=== PATIENT | female | born 1940 | race Caucasian/White ===

== ENCOUNTER 2024-03-12 13:52 | Emergency (ER) | payer MEDICARE, MEDICAID, SELFPAY ==
[2024-03-12] VITALS (12 sets, daily range): BP systolic 115–146; BP diastolic 84–85; PULSE 61–73; RESP 11–22; TEMP 36.6; O2SAT 95–99
[2024-03-12 14:19] LABS: Basophils Percent Auto 0.5 % (0.2-1.2); Eosinophils Absolute Auto 0.2 K/mm3 (0-0.3); Eosinophils Percent Auto 2.2 % (0-4.4); Hematocrit 38.1 % (37.0-47.0); Hemoglobin 12.5 g/dL (12.0-15.0); Immature Granulocyte Absolute 0.02 K/mm3 (0.00-0.031); Immature Granulocyte Percent A 0.2 % (0-0.5); Lymphocytes Absolute Auto 3.03 K/mm3 (0.9-3.2); Lymphocytes Percent Auto 36.7 % (18.3-44.2); Mean Corpuscular HGB Conc 32.8 g/dl (32-36); Mean Corpuscular Volume 94.5 fl (80-100); Mean Platelet Volume 10.9 fl (7.4-10.4); Monocytes Absolute Auto 0.7 K/mm3 (0.1-0.6); Monocytes Percent Auto 8.6 % (2.6-8.5); Neutrophils Absolute Auto 4.3 K/mm3 (1.3-6.7); Neutrophils Percent Auto 51.8 % (45.5-73.1); Platelet Count Result 197 k/mm3 (150-375); Red Blood Count 4.03 M/mm3 (4.2-5.4); Red Cell Distribution Width 13.1 % (11.5-14.5); White Blood Count 8.3 K/mm3 (4.5-10.0)
[2024-03-12 14:29] LABS: Alanine Aminotransferase 14 U/L (6-35); Alkaline Phosphatase 108 U/L (38-126); Anion Gap 8 mmol/L (4-12); Aspartate Amino Transferase 23 U/L (14-36); Bilirubin,Total 0.6 mg/dL (0.2-1.3); Blood Urea Nitrogen 20 mg/dL (7-17); Carbon Dioxide 25 mmol/L (22-30); Chloride 103 mmol/L (98-107); Estimated CRCL calculation 72 ml/min; Estimated Glomerular Filt Rate > 60; Glucose 96 mg/dL (65-110); Sodium 136 mmol/L (137-145)
[2024-03-12 14:30] LABS: Lactic Acid Reflex 0.9 mmol/L (0.7-2.0)
[2024-03-12 15:30] LABS: Add Urine Microscopic? NO; Appearance Urine Clear (Clear); Bacteria Urine None Seen /hpf; Bilirubin Urine Negative (Negative); Blood Urine Non-Hemolyzed Trace (Negative); Color Urine Yellow (Yellow); Glucose Urine UA Negative (Negative); Ketones Urine Negative (Negative); Leukocyte Esterase Ur Negative LEU/UL (Negative); Need Manual Microscopic Reviewed; Nitrate Urine Negative (Negative); Non Pathogenic Casts 0-2; Protein Urine Negative (Negative); RBC Urine 0-2 /hpf (0-2); Specific Grav Ur 1.017 (1.001-1.035); Squamous Epithelial Cell Urine None Seen /hpf (Few); Urobilinogen Urine 0.2 mg/dL (<2.0); WBC Urine 0-5 /hpf (0-3); pH Urine 5.5 (5.0-9.0)
[2024-03-12 15:49] LABS: Ethanol < 10 mg/dL (<10)
--- NOTE | 2024-03-12 15:58 | ED_ITS ---
HPI - Altered Mental Status General Chief Complaint: Altered Mental Status Stated Complaint: PSYCH Time Seen by Provider: 03/12/24 13:59 Source: EMS Mode of arrival: EMS Limitations: altered mental status History of Present Illness HPI narrative: 83-year-old with a history of schizoaffective disorder, GERD was sent in [facility] for [facility] behavior. Upon arrival patient is screaming however denied any chest pain or headache. No history of fever or falls report Review of Systems Review of Systems: ROS unobtainable: Yes unobtainable due to mental status and other (Dementia) Exam Narrative: GENERAL: Well-appearing, well-nourished, loud HEAD: Normocephalic, atraumatic. EYES: PERRLA and EOMI. ENT: Nares clear NECK: Supple. CHEST: Clear to auscultation. No respiratory distress. HEART: Regular rate and rhythm. No murmur heard. Normal peripheral pulses. ABDOMEN: Soft, nontender, nondistended, normal active bowel sounds. EXTREMITIES: Normal range of motion. No edema. SKIN: Warm, dry, no rash. NEURO: No focal deficits. Alert PSYCH: Normal mood and affect. Course Course Emergency Course: Patient calmed down. Her lab work is unremarkable will discharge her back to the nursing Vital Signs Vital signs: Vital Signs Temperature 36.6 C 03/12/24 14:01 Pulse Rate 73 03/12/24 14:01 Respiratory Rate 18 03/12/24 14:01 Blood Pressure 115/85 03/12/24 14:01 Pulse Oximetry 97 03/12/24 14:01 Oxygen Delivery Room Air 03/12/24 14:01 Temperature 36.6 C 03/12/24 14:01 Pulse Rate 61 03/12/24 14:29 Respiratory Rate 18 03/12/24 14:01 Blood Pressure 115/85 03/12/24 14:01 Pulse Oximetry 99 03/12/24 14:29 Oxygen Delivery Room Air 03/12/24 14:29 MDM - Altered Mental Status Lab Data 03/12/24 14:07 03/12/24 14:07 Labs: Lab Results 03/12/24 03/12/24 Range/Units 14:07 14:10 WBC 8.3 (4.5-10.0) K/mm3 RBC 4.03 L (4.2-5.4) M/mm3 Hgb 12.5 (12.0-15.0) g/dL Hct 38.1 (37.0-47.0) % MCV 94.5 (80-100) fl MCH 31.0 (26-34) pg MCHC 32.8 (32-36) g/dl RDW 13.1 (11.5-14.5) % Plt Count 197 (150-375) k/mm3 MPV 10.9 H (7.4-10.4) fl Immature Gran % (Auto) 0.2 (0-0.5) % Neut % (Auto) 51.8 (45.5-73.1) % Lymph % (Auto) 36.7 (18.3-44.2) % [place] % (Auto) 8.6 H (2.6-8.5) % Eos % (Auto) 2.2 (0-4.4) % Baso % (Auto) 0.5 (0.2-1.2) % Lymph # (Auto) 3.03 (0.9-3.2) K/mm3 [place] # (Auto) 0.7 H (0.1-0.6) K/mm3 Eos # (Auto) 0.2 (0-0.3) K/mm3 Baso # (Auto) 0.0 (0.0-0.1) K/mm3 Abs Immat Gran (auto) 0.02 (0.00-0.031) K/mm3 Absolute Neuts (auto) 4.3 (1.3-6.7) K/mm3 Absolute Nucleated RBC 0.000 (0.0-0.012) K/mm3 Nucleated RBC % 0.0 (0.0-0.2) % Sodium 136 L (137-145) mmol/L Potassium 4.0 (3.4-5.0) mmol/L Chloride 103 (98-107) mmol/L Carbon Dioxide 25 (22-30) mmol/L Anion Gap 8 (4-12) mmol/L BUN 20 H (7-17) mg/dL Creatinine 0.50 L (0.7-1.0) mg/dL Estim Creat Clear Calc 72 ml/min Estimated GFR > 60 (59 - ) Glucose 96 (65-110) mg/dL Lactic Acid 0.9 (0.7-2.0) mmol/L Calcium 9.0 (8.4-10.2) mg/dL Total Bilirubin 0.6 (0.2-1.3) mg/dL AST 23 (14-36) U/L ALT 14 (6-35) U/L Alkaline Phosphatase 108 (38-126) U/L Total Protein 8.0 (6.3-8.2) g/dL Albumin 4.0 (3.5-5.1) g/dL TSH (Reflex) 1.720 (0.465-4.68) uIU/mL Urine Color Yellow (Yellow) Urine Appearance Clear (Clear) Urine pH 5.5 (5.0-9.0) Ur Specific [place] 1.017 (1.001-1.035) Urine Protein Negative (Negative) mg/dL Urine Glucose (UA) Negative (Negative) mg/dL Urine Ketones Negative (Negative) mg/dL Ur Blood (Man) Non-hemolyzed trace H (Negative) Urine Nitrate Negative (Negative) Urine Bilirubin Negative (Negative) Urine Urobilinogen 0.2 (<2.0) mg/dL Add Ur Microanalysis Reviewed Leukocyte Esterase Rfl Negative (Negative) TYRONE/UL Urine RBC 0-2 (0-2) /hpf Urine WBC 0-5 (0-3) /hpf Ur Squamous Epith Cells None seen (Few) /hpf Urine Bacteria None seen /hpf Urine Casts 0-2 Urine Opiates Screen Pending Urine Methadone Screen Pending Ur Barbiturates Screen Pending Ur Phencyclidine Scrn Pending Ur Amphetamine Screen Pending U Benzodiazepines Scrn Pending Urine Cocaine Screen Pending U Cannabinoids Screen Pending Ethyl Alcohol < 10 (<10) mg/dL Discharge Plan Discharge Clinical Impression: Altered mental status Qualifiers: Altered mental status type: disorientation Qualified Code(s): R41.0 - Disorientation, unspecified Patient Disposition: [facility]Asst Living Condition: Stable Instructions: Altered Mental Status (ED) Follow-up/Referrals: Delfin Starks MD [Primary Care Provider] - Time of Disposition: 16:00
[2024-03-12 16:06] LABS: Amphetamine Screen Urine Negative (Negative); Barbiturate Screen Urine Negative (Negative); Benzodiazepines Screen Urine Negative (Negative); Cannabinoid Screen Urine Negative (Negative); Cocaine Screen Urine Negative (Negative); Methadone Screen Urine Negative (Negative); Opiate Screen Urine Negative (Negative); Phencyclidine Screen Urine Negative (Negative)
== END 2024-03-12 17:28 ==
PROVIDERS: Emergency Provider Family Medicine; PCP Family Medicine
DX: R41.82 Altered mental status, unspecified (principal); R41.0 Disorientation, unspecified; F25.9 Schizoaffective disorder, unspecified; K21.9 Gastro-esophageal reflux disease without esophagitis
CPT/HCPCS: 36415; 80053; 80307; 81003; 82077; 83605; 84443; 85025; 87040; 99284

== ENCOUNTER 2024-07-06 09:35 | Outpatient (CLI) | payer MEDICARE, MEDICAID, SELFPAY ==
--- NOTE | ~2024-07-06 | CT_ITS ---
EXAMINATION: CT chest abdomen pelvis w con DATE: 07/06/2024 10:12 INDICATION: Malignant neoplasm of breast. TECHNIQUE: Computed tomography (CT) of the chest, abdomen, and pelvis was performed with 100 mL Omnip aque 350 intravenous contrast. Automated exposure control and iterative reconstruction technique were employed. The dose-length product was 483.19 mGy-cm. COMPARISON: None FINDINGS: CHEST CT: There is mild scarring at the lung apices. There is mild emphysema. There is mild atelectasis bilater ally. No pleural effusion. The heart size is normal. There are coronary artery calcifications. No per icardial effusion. There is a 2.1 cm subareolar mass in left breast. There is a mildly enlarged left axillary lymph node. There are widespread scattered lytic lesions in the bones. There is a pathologic compression fracture of T3. There is a pathologic burst fracture of T8, probably chronic. There is s evere thoracic spondylosis, probably chronic. ABDOMEN/PELVIS CT: The liver and spleen are normal. There are gallstones in the gallbladder, which is normal in size. Th e pancreas and adrenal glands are normal. There is cortical thinning of the kidneys. There is a 14 mm cyst in left kidney. There are no dilated loops of bowel. There are no pathologically enlarged lymph nodes. There is no free intraperitoneal fluid. There are subcutaneous calcifications in the right bu ttock, consistent with old fat necrosis. There are widespread scattered lytic lesions in the bones. T here is severe lumbar spondylosis. IMPRESSION: 1. Left breast mass, mildly enlarged left axillary lymph node, and widespread bone lesions, consisten t with metastatic breast cancer. Reviewed, dictated and finalized at location [facility]. [facility] IMPRESSION: 1. Left breast mass, mildly enlarged left axillary lymph node, and widespread b one lesions, consistent with metastatic breast cancer.
[2024-07-06 10:02] LABS: Estimated Glomerular Filt Rate > 60
--- OUTSIDE RECORDS SUMMARY | 2024-07-06 12:22 | XMS_ITS | Clinical Summary ---
Author Organization [facility] [address] [place] [address] Care Team Providers Care Railway Engineer Name Role Phone Glynn Jefferson MD Primary Care Provi castro Jamaal Amaya Unavailable [phone] Pa Mejía DO Unavailable [phone] Allergies Active Allergy Reactions Criticality Noted Date Comments Ciprofloxacin Unknown 08/06/2021 Diphenhydramine Unknown 08/06/2021 Penicillins Other (See comments) Low 01/30/2016 Reaction: Streptomycin Unknown 08/06/2021 Sulfa (Sulfonamide Antibiotics) Unknown 06/06/2015 Medications cholecalciferol, vitamin D3, 1,000 unit tablet,chewable Take 2 tablet/chew tab by mouth every morning Active cyanocobalamin (Vitamin B-12) 1,000 mcg tablet Take 1 tablet (1,000 mcg total) by mouth daily Active OLANZapine (ZyPREXA) 10 mg tablet Take 1 tablet (10 mg total) by mouth nightly 01/03/20 24 Active ondansetron ODT (ZOFRAN-ODT) 4 mg disintegrating tabletIndications: Nausea and Vomiting Take 1 tablet (4 mg total) by mouth every 6 (six) hours as needed for nausea or vomiting 01/03/20 24 Active ondansetron (ZOFRAN) 4 mg/2 mL injectionIndicatio ns:Nausea and Vomiting Infuse 2 mL (4 mg total) into a venous catheter every 6 (six) hours as needed for nausea or vomiting (if not tolerating PO) 01/03/20 24 Active polyethylene glycol (MIRALAX) 17 gram/dose bulk powderIndications: constipation Take 17 g by mouth 2 (two) times a day 01/03/20 24 Active senna (SENOKOT) 8.6 mg tablet Take 1 tablet by mouth 2 (two) times a day 01/03/20 24 025 Active bisacodyL (DULCOLAX) 10 mg suppositoryIndicat ions:constipation Insert 1 suppository (10 mg total) into the rectum daily Active magnesium citrate solution Take by mouth once Active silver sulfadiazine (SILVADENE, SSD) 1 % creamIndications:M inor Bacterial Skin Infections Apply topically daily 85 g 06/03/19 25 Active anastrozole (ARIMIDEX) 1 mg tabletIndications: Hormone Receptor + Postmenopausal Advanced Breast Cancer Take 1 tablet (1 mg total) by mouth daily 30 tablet 3 06/03/19 25 Active Active Problems Problem Noted Date Diagnosed Date Malignant neoplasm of left b reast in female, estrogen receptor positive 01/06/2024 Cancer Staging:Clinical stage from 01/24/2024:Stage IV(cT2, cN2a, cM1, G1, ER+, NY+, HER2-) - Signed by Pa Mejía DO on 02/28/2024 Altered mental status, unspe cified altered mental status type 12/27/2023 Encounters Date Type Department Care Team Description 07/06/2024 Orders Only [facility] [address] [place] [address] [phone] ProviderDavid MD 06/03/2024 1:15 PM REGULATORY LEAD Lab [facility] at [address] [address] Malignant neoplasm of left breast in female, estrogen receptor positive, unspecified site of breast (HCC) 06/03/2024 1:00 PM REGULATORY LEAD Office Visit 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 [address] [place] [address] Alexandra Navas, [facility] 05/06/[address] [facility] [address] [place] [address] Latha Arreola, [facility] 05/04/2024 Orders Only [facility] [address] [place] [address] Latha Arreola, [facility] Malignant neoplasm of left breast in female, estrogen receptor positive, unspecified site of breast (HCC) (Primary Dx) from Last 3 Months Immunizations Immunization Administration Dates Next Due Tdap 01/02/2023 Medical History Medical History Date Comments Schizophrenia (HCC) Bipolar affective (HCC) GERD (gastroesophageal reflux disease) Cancer (CMS/HCC) (HCC) Family History Medical History Relation Name Comments No Known Problems Father No Known Problems Maternal Grandfather Breast cancer Maternal Grandmother No Known Problems Mother No Known Problems Paternal Grandfather No Known Problems Paternal Grandmother Relation Name Status Comments Father Maternal Grandfather Maternal Grandmother Mother Paternal Grandfather Paternal Grandmother Social History Tobacco Use Types Packs/Day Years Used Date Smoking Tobacco: Every Day Cigarettes Tobacco Cessation:Ready to Q uit: Not Asked; Counseling Given: Not Answered Passive Exposure Comments:5 cigarettes a day AUDIT-C Answer Date Recorded Q1: How often do you have a drink containing alcohol? Never 02/28/2024 Q2: How many drinks containi ng alcohol do you have on a typical day when you are drinking? Patient does not drink Q3: How often do you have si x or more drinks on one occasion? Never 02/28/2024 Personal Safety Answer Date Recorded Have you ever been in or are you currently in a harmful physical or emotional relationship or is someone making you feel afraid or unsafe? Denies 12/28/2023 Comments Unknown Sex and Gender Information Value Date Recorded Sex Assigned at Not on file Legal Sex Female 4:40 AM REGULATORY LEAD Gender Identity Not on file Sexual Orientation Not on file Occupation Industry Job Start Date Job End Date retired Not on file Not on file Not on file Obstetrics History Last Filed Vital Signs Vital Sign Reading Time Taken Comments Blood Pressure 111/68 06/03/2024 1:29 PM REGULATORY LEAD Pulse 82 06/03/2024 1:29 PM REGULATORY LEAD Temperature 36.5 C (97.7 F) 06/03/2024 1:29 PM REGULATORY LEAD Respiratory Rate 18 06/03/2024 1:29 PM REGULATORY LEAD Oxygen Saturation 99% 06/03/2024 1:2 9 PM REGULATORY LEAD Inhaled Oxygen Concentration - - Weight 73.7 kg (162 lb 6.4 oz) 06/03/2024 1:29 PM REGULATORY LEAD Height 177.8 cm (5' 10 ) 01/24/2024 4:0 0 PM CDT Pt is unable stand up Body Mass Index 23.3 01/24/2024 4:00 PM CDT Plan of Treatment Health Maintenance Due Date Last Done Comments Depression Screening 1940 Osteoporosis Screening-Bone Density Scan 1940 Pneumococcal vaccine 65+ (1 of 2 - PCV) 1946 Hepatitis B Screening 1958 Zoster Vaccine (1 of 2) 11/28/1959 Well Visit 65+ 2005 Covid-19 Vaccine (3 - Pfizer risk series) 07/15/2020 06/17/2020, 05/27/2020 Influenza Vaccine (#1) 2024 Fall Risk Assessment 01/02/2025 01/03/2024 DTaP/Tdap/Td Vaccine (2 - Td or Tdap) 01/02/2033 Procedures Procedure Name Priority Date/Time Associated Diagnosis Comments POCT CREATININE FOR CONTRAST EVALUATION Routine 07/06/2024 11:[address] CHEST ABDOMEN PELVIS W CONTRAST Schedule Routine, Read Routine (OP Routine) 07/06/2024 10:41 AM REGULATORY LEAD EGFR Routine 06/03/2024 1:19 PM REGULATORY LEAD Malignant neoplasm of left breast in female, estrogen receptor positive, unspecified site of breast (HCC) DIFFERENTIAL AUTO Routine 06/03/2024 1:1 9 PM REGULATORY LEAD Malignant neoplasm of left breast in female, estrogen receptor positive, unspecified site of breast (HCC) CANCER ANTIGEN 15-3 Routine 06/03/2024 1 :19 PM REGULATORY LEAD Malignant neoplasm of left breast in female, estrogen receptor positive, unspecified site of breast (HCC) CBC WITH AUTO DIFFERENTIAL Routine 06/03/2024 1:19 PM REGULATORY LEAD Malignant neoplasm of left breast in female, estrogen receptor positive, unspecified site of breast (HCC) COMPREHENSIVE METABOLIC PANEL Routine 06/03/2024 1:19 PM REGULATORY LEAD Malignant neoplasm of left breast in female, estrogen receptor positive, unspecified site of breast (HCC) from Last 3 Months Results * POCT creatinine for contrast evaluation (07/06/2024 11:45 AM REGULATORY LEAD) Blood us Historical Provider POINT OF CARE TEST ORDERA BLES Final Result * CT Chest Abdomen Pelvis W Contrast (07/06/2024 10:41 AM REGULATORY LEAD) Anatomical Region Laterality Modality Body N/A Computed Tomogra phy us Historical Provider IMG CT PROCEDURES Final R esult * eGFR (06/03/2024 1:19 PM REGULATORY LEAD) eGFR 89 >=60 mL/min/1. 73 m2 Comment: Interpretive Data Reference Interval Normal >/= 90 mL/min/1.73m2 Mildly decreased* 60 - 89 mL/min/1.73m2 Mildly to moderately decreased 45 - 59 mL/min/1.73m2 Moderately to severely decreased 30 - 44 mL/min/1.73m2 Severely decreased 15 - 29 mL/min/1.73m2 Kidney Failure < 15 mL/min/1.73m2 *Relative to young adult level Estimated glomerular filtration rate is determined by the 2020 CKD-EPI equation recommended by the National Kidney Foundation (A Unifying Approach to GFR Estimation: Recommendations of the NKF-ASK Task Force on Reassessing the Inclusion of Race in Diagnosing Kidney Disease, JASN 2020). The CKD-EPI equation should not be used for patients with unstable renal function and has not been validated in children and those over 70. Current interpretive data was last reviewed 2021. Testing performed by: [address] [address] Blood 06/03/2024 1:19 PM REGULATORY LEAD 06/03/2024 1:22 PM REGULATORY LEAD us Pa Mejía DO LAB BLOOD ORDERABLES Final R esult [facility] [address] [facility] Department [place] [address] * Differential, auto (06/03/2024 1:19 PM REGULATORY LEAD) Neutrophil abs 4.9 1.5 - 6.5 K/cumm Comment:Testing performed by : [address] [address] Imm gran abs 0.1 0.0 - 0.1 K/cumm AISHA Comment:Testing performed by : [address] [address] Lymphocyte abs 2.6 0.8 - 3.3 K/cumm AISHA Comment:Testing performed by : [address] [address] Monocyte abs 0.6 0.2 - 0.8 K/cumm AISHA Comment:Testing performed by : [address] [address] Eosinophil abs 0.3 0.0 - 0.5 K/cumm AISHA Comment:Testing performed by : [address] [address] Basophil abs 0.0 0.0 - 0.1 K/cumm AISHA Comment:Testing performed by : [address] [address] Neutrophil pct 57.7 % AISHA Comment: Interpretive Data Percent cell count reference ranges are not reported, since discordance with absolute values may lead to misinterpretation of CBC data. Current Interpretive Data was last revised on 2017. Testing performed by: [address] [address] Imm gran pct 0.6 % AISHA Comment: Interpretive Data Percent cell count reference ranges are not reported, since discordance with absolute values may lead to misinterpretation of CBC data. Current Interpretive Data was last revised on 2017. Testing performed by: [address] [address] Lymphocyte pct 30.2 % [facility] Comment: Interpretive Data Percent cell count reference ranges are not reported, since discordance with absolute values may lead to misinterpretation of CBC data. Current Interpretive Data was last revised on 2017. Testing performed by: [address] [address] Monocyte pct 7.4 % [facility] Comment: Interpretive Data Percent cell count reference ranges are not reported, since discordance with absolute values may lead to misinterpretation of CBC data. Current Interpretive Data was last revised on 2017. Testing performed by: [address] [address] Eosinophil pct 3.7 % [facility] Comment: Interpretive Data Percent cell count reference ranges are not reported, since discordance with absolute values may lead to misinterpretation of CBC data. Current Interpretive Data was last revised on 2017. Testing performed by: [address] [address] Basophil pct 0.4 % [facility] Comment: Interpretive Data Percent cell count reference ranges are not reported, since discordance with absolute values may lead to misinterpretation of CBC data. Current Interpretive Data was last revised on 2017. Testing performed by: [address] [address] Blood 06/03/2024 1:19 PM REGULATORY LEAD 06/03/2024 1:22 PM REGULATORY LEAD us Pa Mejía DO LAB BLOOD ORDERABLES Final R esult AISHA RODRIGUEZ [address] [facility] Department [place] [address] * CBC with auto differential (06/03/2024 1:19 PM REGULATORY LEAD) WBC 8.5 3.8 - 9.9 K/cumm Comment:Testing performed by : [address] [address] Hgb 12.0 11.9 - 15.5 g/dL AISHA Comment:Testing performed by : [address] [address] Hct 36.5 35.6 - 45.5 % AISHA Comment:Testing performed by : [address] [address] Plt 262 150 - 400 K/cumm AISHA Comment:Testing performed by : [address] [address] MPV 9.1 9.1 - 12.3 fL AISHA Comment:Testing performed by : [address], [address] RBC 4.05 3.90 - 5.20 M/cumm AISHA Comment:Testing performed by : [address], [address] MCV 90.1 81.3 - 96.4 fL AISHA Comment:Testing performed by : [address], [address] MCH 29.6 27.1 - 33.3 pg AISHA Comment:Testing performed by : [address] [address] MCHC 32.9 32.3 - 35.7 g/dL AISHA Comment:Testing performed by : [address], [address] RDW CV 12.6 11.1 - 14.9 % AISHA Comment:Testing performed by : [address], [address] RDW SD 41.9 35.7 - 48.1 fL AISHA Comment:Testing performed by : [address] [address] NRBC abs 0.00 0.00 - 0.01 K/cumm AISHA Comment:Testing performed by : [address], [address] Blood 06/03/2024 1:19 PM REGULATORY LEAD 06/03/2024 1:22 PM REGULATORY LEAD Pa WillsFunium LAB BLOOD ORDERABLES [facility] Performing Organization Address [facility] Co de Phone Number AISHA [address] [address] * (ABNORMAL) Cancer antigen 15-3 (06/03/2024 1:19 PM REGULATORY LEAD) CA 15-3 ag 160.0(H) 0.0 - 25.0 units/mL Comment: Interpretive Data The Dana CA 15-3 assay procedure was used. Results from different manufacturers or methods may not be comparable. Serial testing should be performed using the same method. Testing performed by: [address] [address] Blood 06/03/2024 1:19 PM REGULATORY LEAD 06/03/2024 4:49 PM REGULATORY LEAD Pa StrattonAlma [employer] [facility] BLOOD ORDERABLES Final R esult Performing Organization Address [facility] Co de Phone Number AISHA [address] [place] [address] * Comprehensive metabolic panel (06/03/2024 1:19 PM REGULATORY LEAD) Pathologist [facility] Sodium 136 135 - 145 mmol/L Comment:Testing performed by : [address] [address] Potassium, pl 4.2 3.3 - 4.9 mmol/L AISHA Comment:Testing performed by : [address] [address] Chloride 99 97 - 110 mmol/L AISHA Comment:Testing performed by : [address] [address] CO2 26 22 - 32 mmol/L AISHA Comment:Testing performed by : [address] [address] Anion gap 11 2 - 15 mmol/L AISHA Comment:Testing performed by : [address] [address] BUN 15 6 - 25 mg/dL AISHA Comment:Testing performed by : [address] [address] Creatinine 0.60 0.60 - 1.10 mg/dL AISHA Comment:Testing performed by : [address] [address] Glucose 136 70 - 199 mg/dL AISHA Comment: Interpretive Data Fasting glucose >/= 126 mg/dl is diagnostic for diabetes. Fasting is defined as no caloric intake for at least 8 hours. Fasting glucose between 100 mg/dl to 125 mg/dl is diagnostic of prediabetes. In a patient with classic symptoms of hyperglycemia or hyperglycemic crisis, a random glucose >/= 200 mg/dl is diagnostic for diabetes. In the absence of unequivocal hyperglycemia, results should be confirmed by repeat testing. The classification and Diagnosis of Diabetes Diabetes Care 2021; 46: S19-S40. Current interpretive data was last revised 2022. Testing performed by: [address] [address] Calcium 9.1 8.5 - 10.3 mg/dL AISHA Comment:Testing performed by : [address] [address] Bilirubin, total 0.3 0.1 - 1.2 mg/dL AISHA Comment:Testing performed by : [address] [address] Protein, pl 7.4 6.5 - 8.5 g/dL AISHA Comment:Testing performed by : [address] [address] Albumin 3.6 3.5 - 5.0 g/dL AISHA Comment:Testing performed by : [address] [address] Alk phos 121 40 - 130 Units/L AISHA Comment:Testing performed by : [address] [address] ALT 9 7 - 45 Units/L AISHA Comment:Testing performed by : [address] [address] AST 15 10 - 45 Units/L AISHA RODRIGUEZ Comment:Testing performed by : [facility], [address] [facility], [place]., [address] Blood 06/03/2024 1:19 PM REGULATORY LEAD 06/03/2024 1:22 PM REGULATORY LEAD us Pa Mejía DO LAB BLOOD ORDERABLES Final R esult AISHA [address] [facility] Department [place] [address] from Last 3 Months Additional Health Concerns Infection Onset Date Last Indicated 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 01/02/2023 Insurance MEDICARE [facility] MEDICARE IDPA IDPA MEDICARE Advance Directives For more information, please contact: [phone] * Full Code (Latest Code Status on File) Date Activated Date Inactivated Comments 12/28/2023 8:36 PM 01/04/2024 12:04 AM Care Teams Railway Engineer Relationship Specialty Start Date End Date Glynn Jefferson MD [address] [facility] [address] [place] [address] PCP - General Family Medicine 12/21/19 Jamaal Amaya PA [address] [facility] [address] [place] [address] Consulting Physician Internal Medicine 12/28/23 Pa Mejía DO [address] [place] [address] MEDICAL ONCOLOGY, [address] [address] Medical Oncologist/Logger Driving Horses Hematology and Oncology 01/14/24
--- OUTSIDE RECORDS SUMMARY | 2024-07-06 12:22 | XMS_ITS | Encounter Summary ---
Author Organization [facility] Facility Care Team Providers Care Cut Off Sawyer Log Name Role Phone Glynn Jefferson MD Primary Care Provi castro Jamaal Amaya Unavailable [phone] Ignacio Hernandez MD Unavailable [phone] Pa Mejía DO Unavailable [phone] Encounter Details Date Type Department Care Team (Latest Contact Info) Description 08/02/2017 Orders Only [facility]IN[facility] ProviderDavid MD [address] [place] [address] Social History Tobacco Use Types Packs/Day Years Used Date Smoking Tobacco: Never Assessed Comments Unknown Sex and Gender Information Value Date Recorded Sex Assigned at Not on file Legal Sex Female 4:40 AM MEDICAL TRANSCRIPTIONIST Gender Identity Not on file Sexual Orientation Not on file documented as of this encounter Plan of Treatment Not on file documented as of this encounter Procedures Procedure Name Priority Date/Time Associated Diagnosis Comments SCAN - LABS 08/02/2017 12:00 AM CDT documented in this encounter Results * SCAN - LABS (08/02/2017 12:00 AM CDT) Narrative 08/02/2017 12:00 AM CDT Ordered by an unspecified provider. 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 Patient off antipyretics, afebrile, and asymptomatic. Vidya Ramesh 12/27/2023 12/27/2023 01/03/2024 12:46 PM CDT documented as of this encounter Care Teams Cut Off Sawyer Log Relationship Specialty Start Date End Date Glynn Jefferson MD [address] [facility] [address] [place] [address] PCP - General Family Medicine 12/21/19 Ignacio Hernandez MD 1 [place] [address] PCP - Hospice Attending 12/29/2301/05 Jamaal Amaya PA [address] [place] [address] Consulting Physician Internal Medicine 12/28/23 Pa Mejía DO [address] [place] [address] MEDICAL ONCOLOGY, [facility] [address] [place] [address] Medical Oncologist/Soaker Helper Hematology and Oncology 01/14/24 documented as of this encounter
--- OUTSIDE RECORDS SUMMARY | 2024-07-06 12:22 | XMS_ITS | Encounter Summary ---
Author Organization [facility] Facility Care Team Providers Care Men'S Custom Hair Piece Consultant Name Role Phone Glynn Jefferson MD Primary Care Provi castro Jamaal Amaya Unavailable [phone] Ignacio Hernandez MD Unavailable [phone] Pa Mejía DO Unavailable [phone] Encounter Details Date Type Department Care Team (Latest Contact Info) Description 05/30/2017 Orders Only [facility] CLINCONV ProviderDavid MD [address] [place] [address] Social History Tobacco Use Types Packs/Day Years Used Date Smoking Tobacco: Never Assessed Comments Unknown Sex and Gender Information Value Date Recorded Sex Assigned at Not on file Legal Sex Female 4:40 AM COPY SUPERVISOR Gender Identity Not on file Sexual Orientation Not on file documented as of this encounter Plan of Treatment Not on file documented as of this encounter Procedures Procedure Name Priority Date/Time Associated Diagnosis Comments SCAN - LABS 05/30/2017 12:00 AM COPY SUPERVISOR documented in this encounter Results * SCAN - LABS (05/30/2017 12:00 AM COPY SUPERVISOR) Narrative 05/30/2017 12:00 AM COPY SUPERVISOR Ordered by an unspecified provider. 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 Patient off antipyretics, afebrile, and asymptomatic. Vidya Ramesh 12/27/2023 12/27/2023 01/03/2024 12:46 PM CDT documented as of this encounter Care Teams Men'S Custom Hair Piece Consultant Relationship Specialty Start Date End Date Glynn Jefferson MD [address] [address] [place] [address] PCP - General Family Medicine 12/21/19 Ignacio Hernandez MD [address] [facility] [place] [address] PCP - Hospice Attending 12/29/2301/05 Jamaal Amaya PA [address] [facility] [address] [place] [address] Consulting Physician Internal Medicine 12/28/23 Pa Mejía DO [address] [place] [address] MEDICAL ONCOLOGY, [facility] [address] [place] [address] Medical Oncologist/Community Health Program Representative Hematology and Oncology 01/14/24 documented as of this encounter
--- OUTSIDE RECORDS SUMMARY | 2024-07-06 12:22 | XMS_ITS | Referral Summary ---
Author Organization [facility] [place] [address] [place] [address] Care Team Providers Care Agriculture Internship Name Role Phone Glynn Jefferson MD Primary Care Provi castro Jamaal Amaya Unavailable [phone] Pa Mejía DO Unavailable Encounters Date Type Department Care Team Description 07/06/2024 Orders Only [facility] Oncology [address] [place] [phone] ProviderDavid MD 06/03/2024 1:15 PM OFFSET PRESS OPERATOR Lab [facility] at [address] [address] Malignant neoplasm of left breast in female, estrogen receptor positive, unspecified site of breast (HCC) 06/03/2024 1:00 PM OFFSET PRESS OPERATOR Office Visit [facility] Oncology [address] [place] [phone] Pa Mejía DO Malignant neoplasm of left breast in female, estrogen receptor positive, unspecified site of breast (HCC) (Primary Dx); Right-sided chest wall pain; retirement (current) use of aromatase inhibitors; Penetrating foot wound, right, sequela 06/01/2024 Telephone [facility] Oncology [address] [place] [phone] Alexandra Navas, ANNA 05/06/2024 Telephone [facility] Oncology [address] [place] [phone] Latha Arreola CMA 05/04/2024 Orders Only [facility] Oncology [address] [facility] [address] [place] [phone] Latha Arreola CMA Malignant neoplasm of left breast in female, estrogen receptor positive, unspecified site of breast (HCC) (Primary Dx) from Last 3 Months Allergies Active Allergy Reactions Criticality Noted Date [...] from 01/24/2024:Stage IV(cT2, cN2a, cM1, G1, ER+, SC+, HER2-) - Signed by Pa Mejía DO on 02/28/2024 Altered mental status, unspe cified altered mental status type 12/27/2023 Immunizations Immunization Administration Dates Next Due Tdap 01/02/2023 Social History Tobacco Use Types Packs/Day Years [...] on file Legal Sex Female 4:40 AM OFFSET PRESS OPERATOR Gender Identity Not on file Sexual Orientation Not on file Occupation Industry Job Start Date Job End Date retired Not on file Not on file Not on file Last Filed Vital Signs Vital Sign Reading Time Taken Comments Blood Pressure 111/68 06/03/2024 1:29 PM OFFSET PRESS OPERATOR Pulse 82 06/03/2024 1:29 PM OFFSET PRESS OPERATOR Temperature 36.5 C (97.7 F) 06/03/2024 1:29 PM OFFSET PRESS OPERATOR Respiratory Rate 18 06/03/2024 1:29 PM OFFSET PRESS OPERATOR Oxygen Saturation 99% 06/03/2024 1:2 9 PM OFFSET PRESS OPERATOR Inhaled Oxygen Concentration - - Weight 73.7 kg (162 lb 6.4 oz) 06/03/2024 1:29 PM OFFSET PRESS OPERATOR Height 177.8 cm (5' 10 ) 01/24/2024 4:0 0 PM CDT Pt is unable stand up Body Mass Index 23.3 01/24/2024 4:00 PM CDT Plan of Treatment Not on file Procedures Procedure Name Priority Date/Time Associated Diagnosis Comments POCT CREATININE FOR CONTRAST EVALUATION Routine 07/06/2024 11:45 AM OFFSET PRESS OPERATOR CT CHEST ABDOMEN PELVIS W CONTRAST Schedule Routine, Read Routine (OP Routine) 07/06/2024 10:41 AM OFFSET PRESS OPERATOR EGFR Routine 06/03/2024 1:19 PM OFFSET PRESS OPERATOR Malignant neoplasm of left breast in female, estrogen receptor positive, unspecified site of breast (HCC) DIFFERENTIAL AUTO Routine 06/03/2024 1:1 9 PM OFFSET PRESS OPERATOR Malignant neoplasm of left breast in female, estrogen receptor positive, unspecified site of breast (HCC) CANCER ANTIGEN 15-3 Routine 06/03/2024 1 :19 PM OFFSET PRESS OPERATOR Malignant neoplasm of left breast in female, estrogen receptor positive, unspecified site of breast (HCC) CBC WITH AUTO DIFFERENTIAL Routine 06/03/2024 1:19 PM OFFSET PRESS OPERATOR Malignant neoplasm of left breast in female, estrogen receptor positive, unspecified site of breast (HCC) COMPREHENSIVE METABOLIC PANEL Routine 06/03/2024 1:19 PM OFFSET PRESS OPERATOR Malignant neoplasm of left breast in female, estrogen receptor positive, unspecified site of breast (HCC) from Last 3 Months Results * POCT creatinine for contrast evaluation (07/06/2024 11:45 AM OFFSET PRESS OPERATOR) Blood us Historical Provider POINT OF CARE TEST ORDERA BLES Final Result * CT Chest Abdomen Pelvis W Contrast (07/06/2024 10:41 AM OFFSET PRESS OPERATOR) Anatomical Region Laterality Modality Body N/A Computed Tomogra phy us Historical Provider MD IMG CT PROCEDURES Final R esult * eGFR (06/03/2024 1:19 PM OFFSET PRESS OPERATOR) eGFR 89 >=60 mL/min/1. 73 m2 Comment: [...] last reviewed 2021. Testing performed by: [address] [address] Blood 06/03/2024 1:19 PM OFFSET PRESS OPERATOR 06/03/2024 1:22 PM OFFSET PRESS OPERATOR Pa Mejía DO LAB BLOOD ORDERABLES Final R esult [facility] [address] [facility] Department [place] [address] * Differential, auto (06/03/2024 1:19 PM OFFSET PRESS OPERATOR) Neutrophil abs 4.9 1.5 - 6.5 K/cumm Comment:Testing performed by : [address] [address] Imm gran abs 0.1 0.0 - 0.1 K/cumm AISHA RODRIGUEZ Comment:Testing performed by : [address] [address] Lymphocyte abs 2.6 0.8 - 3.3 K/cumm AIHSA Comment:Testing performed by : [address] [address] Monocyte abs 0.6 0.2 - 0.8 K/cumm AISHA Comment:Testing performed by : [address], [place]., [address] Eosinophil abs 0.3 0.0 - 0.5 K/cumm [facility] Comment:Testing performed by : [address], [place]., [address] Basophil abs 0.0 0.0 - 0.1 K/cumm [facility] Comment:Testing performed by : [address] [address] Neutrophil pct 57.7 % [facility] Comment: Interpretive Data Percent cell count reference ranges are not reported, since discordance with absolute values may lead to misinterpretation of CBC data. Current Interpretive Data was last revised on 2017. Testing performed by: [address] [address] Imm gran pct 0.6 % [facility] Comment: Interpretive Data Percent cell count reference ranges are not reported, since discordance with absolute values may lead to misinterpretation of CBC data. Current Interpretive Data was last revised on 2017. Testing performed by: [address] [address] Lymphocyte pct 30.2 % [facility] Comment: Interpretive Data Percent cell count reference ranges are not reported, since discordance with absolute values may lead to misinterpretation of CBC data. Current Interpretive Data was last revised on 2017. Testing performed by: [address] [address] Monocyte pct 7.4 % [facility] Comment: Interpretive Data Percent cell count reference ranges are not reported, since discordance with absolute values may lead to misinterpretation of CBC data. Current Interpretive Data was last revised on 2017. Testing performed by: [address] [address] Eosinophil pct 3.7 % [facility] Comment: Interpretive Data Percent cell count reference ranges are not reported, since discordance with absolute values may lead to misinterpretation of CBC data. Current Interpretive Data was last revised on 2017. Testing performed by: [address] [address] Basophil pct 0.4 % AISHA RODRIGUEZ Comment: Interpretive Data Percent cell count reference ranges are not reported, since discordance with absolute values may lead to misinterpretation of CBC data. Current Interpretive Data was last revised on 2017. Testing performed by: [address] [address] Blood 06/03/2024 1:19 PM OFFSET PRESS OPERATOR 06/03/2024 1:22 PM OFFSET PRESS OPERATOR us Pa Mejía DO LAB BLOOD ORDERABLES Final R esult AISHA [address] [facility] Department [place] [address] * CBC with auto differential (06/03/2024 1:19 PM OFFSET PRESS OPERATOR) Pathologist [facility] WBC 8.5 3.8 - 9.9 K/cumm Comment:Testing performed by : [address] [address] Hgb 12.0 11.9 - 15.5 g/dL AISHA RODRIGUEZ Comment:Testing performed by : [address] [address] Hct 36.5 35.6 - 45.5 % AISHA RODRIGUEZ Comment:Testing performed by : [address] [address] Plt 262 150 - 400 K/cumm AISHA Comment:Testing performed by : [address] [address] MPV 9.1 9.1 - 12.3 fL AISHA RODRIGUEZ Comment:Testing performed by : [address] [address] RBC 4.05 3.90 - 5.20 M/cumm AISHA RODRIGUEZ Comment:Testing performed by : [address] [address] MCV 90.1 81.3 - 96.4 fL AISHA RODRIGUEZ Comment:Testing performed by : [address] [address] MCH 29.6 27.1 - 33.3 pg AISHA RODRIGUEZ Comment:Testing performed by : [address] [address] MCHC 32.9 32.3 - 35.7 g/dL AISHA RODRIGUEZ Comment:Testing performed by : [address] [address] RDW CV 12.6 11.1 - 14.9 % AISHA Comment:Testing performed by : [address] [address] RDW SD 41.9 35.7 - 48.1 fL AISHA Comment:Testing performed by : [address] [address] NRBC abs 0.00 0.00 - 0.01 K/cumm AISHA Comment:Testing performed by : [address], [address] Blood 06/03/2024 1:19 PM OFFSET PRESS OPERATOR 06/03/2024 1:22 PM OFFSET PRESS OPERATOR Pa Mejía DO LAB BLOOD ORDERABLES Final R esult AISHA RODRIGUEZ [address] [facility] Department of Laboratories [place], [place] [id number] * (ABNORMAL) Cancer antigen 15-3 (06/03/2024 1:19 PM OFFSET PRESS OPERATOR) CA 15-3 ag 160.0(H) 0.0 - 25.0 units/mL Comment: Interpretive Data The Dana CA 15-3 assay procedure was used. Results from different manufacturers or methods may not be comparable. Serial testing should be performed using the same method. Testing performed by: [address] [address] Blood 06/03/2024 1:19 PM OFFSET PRESS OPERATOR 06/03/2024 4:49 PM OFFSET PRESS OPERATOR Pa Mjeía DO LAB BLOOD ORDERABLES Final R esult AISHA [address] [facility] Department [place] [address] * Comprehensive metabolic panel (06/03/2024 1:19 PM OFFSET PRESS OPERATOR) Sodium 136 135 - 145 mmol/L Comment:Testing performed by : [address] [address] Potassium, pl 4.2 3.3 - 4.9 mmol/L AISHA Comment:Testing performed by : [address] [address] Chloride 99 97 - 110 mmol/L AISHA Comment:Testing performed by : [address] [address] CO2 26 22 - 32 mmol/L AISHA Comment:Testing performed by : [address] [address] Anion gap 11 2 - 15 mmol/L AISHA Comment:Testing performed by : [address] [address] BUN 15 6 - 25 mg/dL AISHA Comment:Testing performed by : [address] [address] Creatinine 0.60 0.60 - 1.10 mg/dL AISHA Comment:Testing performed by : [address] [address] Glucose 136 70 - 199 mg/dL [facility] Comment: Interpretive Data Fasting glucose >/= 126 [...] classification and Diagnosis of Diabetes Diabetes Care 202; 46: S19-S40. Current interpretive data was last revised 2022. Testing performed by: [address] [address] Calcium 9.1 8.5 - 10.3 mg/dL AISHA Comment:Testing performed by : [address] [address] Bilirubin, total 0.3 0.1 - 1.2 mg/dL AISHA Comment:Testing performed by : [address] [address] Protein, pl 7.4 6.5 - 8.5 g/dL AISHA Comment:Testing performed by : [address], [address] Albumin 3.6 3.5 - 5.0 g/dL AISHA Comment:Testing performed by : [address], [address] Alk phos 121 40 - 130 Units/L AISHA Comment:Testing performed by : [address], [address] ALT 9 7 - 45 Units/L AISHA Comment:Testing performed by : [address] [address] AST 15 10 - 45 Units/L AISHA Comment:Testing performed by : [address], [address] Blood 06/03/2024 1:19 PM OFFSET PRESS OPERATOR 06/03/2024 1:22 PM OFFSET PRESS OPERATOR Pa Mejía DO LAB BLOOD ORDERABLES Final R esult [facility] [address] [facility] Department [place] [address] from Last 3 Months Additional Health Concerns Infection Onset Date Last Indicated 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 [id number] [place] [id number] IDPA IDDC MEDICARE [facility] Address: [address] [address] [place] [address] Advance Directives For more information, please contact: [phone] * Full Code (Latest Code Status on File) Date Activated Date Inactivated Comments 12/28/2023 8:36 PM 01/04/2024 12:04 AM Care Teams Agriculture Internship Relationship Specialty Start Date End Date Glynn Jefferson MD [address] [facility] [address] [place] [address] PCP - General Family Medicine 12/21/19 Jamaal Amaya PA [address] [facility] [address] [place] [address] Consulting Physician Internal Medicine 12/28/23 Pa Mejía DO [address] [place] [address] MEDICAL ONCOLOGY, [facility] [address] [place] [address] Medical Oncologist/Crib Pad Maker Hematology and Oncology 01/14/24
--- OUTSIDE RECORDS SUMMARY | 2024-07-06 12:22 | XMS_ITS ---
Author Organization [facility] [address] Address [address] [place] [address] Care Team Providers Care Survey Researcher Name Role Phone Glynn Jefferson MD Primary Care Provi castro Jamaal Amaya Unavailable [phone] Pa Mejía DO Unavailable [phone] Active Problems Problem Noted Date Diagnosed Date Malignant neoplasm of left b reast in female, estrogen receptor positive 01/06/2024 Cancer Staging:Clinical stage from 01/24/2024:Stage IV(cT2, cN2a, cM1, G1, ER+, MA+, HER2-) - Signed by Pa Mejía DO on 02/28/2024 Altered mental status, unspe cified altered mental status type 12/27/2023 Current Treatment and Therapy Plans No current plan information found. Past Treatment and Therapy Plans No past plan information found. Lifetime Dose Tracking * Chemical Lifetime Dose Automatic Entry Manual Entr y DLP 1,309 mGycm 1,309 mGycm 0 mGycm
--- OUTSIDE RECORDS SUMMARY | 2024-07-06 12:22 | XMS_ITS ---
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) ACTIVE 06/06/2015 URINARY TRACT INFECTION, SIT E NOT SPECIFIED (N39.0 - ICD-10-CM) RESOLVED 01/04/2023 07/15/2023 FRACTURE OF NASAL BONES, INI TIAL ENCOUNTER FOR CLOSED FRACTURE (S02.2XXA - ICD-10-CM) RESOLVED 01/02/2023 06/06/19 24 ACUTE CYSTITIS WITH HEMATURIA (N30.01 - ICD-10-CM) ACT WILLOW 01/02/2023 VITAMIN D DEFICIENCY, UNSPECIFIED (E55.9 - ICD-10-CM) ACTIVE 04/09/2022 BIPOLAR DISORDER, UNSPECIFIED (F31.9 - ICD-10-CM) ACTI VE 06/06/2015 POLYOSTEOARTHRITIS, UNSPECIFIED (M15.9 - ICD-10-CM) AC TIVE 06/06/2015 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 [address] [place] [address] TRENT MORENO M.D. [id number] Component Value Range Date SARS-COV-2, RT PCR NEGATIVE NEGATIVE 4 02:39 pm EDT * Individual Tests: COVID-19, RT PCR Performed by: [facility] [address] [place] [address] TRENT MORENO M.D. [id number] Component Value Range Date SARS-COV-2, RT PCR NEGATIVE NEGATIVE 4 04:08 pm EDT * Individual Tests: COVID-19, RT PCR Performed by: [facility] [address] [place] [address] TRENT MORENO M.D. [id number] Component Value Range Date SARS-COV-2, RT PCR NEGATIVE NEGATIVE 4 04:43 pm EDT * Individual Tests: COVID-19, RT PCR Performed by: [facility] [address] [place] [address] TRENT MORENO M.D. [id number] Component Value Range Date SARS-COV-2, RT PCR NEGATIVE NEGATIVE 4 03:51 pm EDT * Individual Tests: COVID-19, RT PCR Performed by: [facility] [address] [place] [address] TRENT MORENO M.D. [id number] Component Value Range Date SARS-COV-2, RT PCR NEGATIVE NEGATIVE 4 06:01 pm EDT * Individual Tests: COVID-19, RT PCR Performed by: [facility] [address] [place] [address] TRENT MORENO M.D. [id number] Component Value Range Date SARS-COV-2, RT PCR NEGATIVE NEGATIVE 4 03:58 pm EST * Individual Tests: COVID-19, RT PCR Performed by: [facility] [address] [place] [address] TRENT MORENO M.D. [id number] Component Value Range Date SARS-COV-2, RT PCR NEGATIVE NEGATIVE 4 02:01 pm EST * Individual Tests: COVID-19, RT PCR Performed by: [facility] [address] [place] [address] TRENT MORENO M.D. [id number] Component Value Range Date SARS-COV-2, RT PCR NEGATIVE NEGATIVE 4 05:53 pm EST * Individual Tests: COVID-19, RT PCR Performed by: [facility] [address] [place] [address] TRENT MORENO M.D. [id number] Component Value Range Date SARS-COV-2, RT PCR NEGATIVE NEGATIVE 4 06:24 pm EST * Individual Tests: COVID-19, RT PCR Performed by: [facility] [address] [place] [address] TRENT MORENO M.D. [id number] Component Value Range Date SARS-COV-2, RT PCR NEGATIVE NEGATIVE 4 03:22 pm EST * Individual Tests: COVID-19, RT PCR Performed by: [facility] [address] [place] [address] TRENT MORENO M.D. [id number] Component Value Range Date SARS-COV-2, RT PCR NEGATIVE NEGATIVE 4 03:51 pm EST * Individual Tests: COVID-19, RT PCR Performed by: [facility] [address] [place] [address] TRENT MORENO M.D. [id number] Component Value Range Date SARS-COV-2, RT PCR NEGATIVE NEGATIVE 4 04:24 pm EST * Individual Tests: COVID-19, RT PCR Performed by: [facility] [address] [place] [address] TRENT MORENO M.D. [id number] Component Value Range Date SARS-COV-2, RT PCR NEGATIVE NEGATIVE 4 04:51 pm EST * Individual Tests: DIFFERENTIAL # / COMPLETE BLOOD COUNT (CBC) WITH DIFFERENTIAL / Serum Creatine + EGFR (Odfebxr-Azufdonw-Ehnopw) / Serum Creatine + EGFR (Ovz-Vzxzvfa-Cjlvsvfn-Female) / CMP (COMPREHENSIVE METABOLIC PANEL) / TSH (THYROID STIMULATING HORMONE) / TODD... Performed by: [facility] [address] [place] [address] TRENT MORENO M.D. [id number] Component Value Range Date EGFR () 107 mL/min 06/2023 11:28 pm EST EGFR (Non-) 89 ml/min 05/21/2023 11:28 pm EST * COMPLETE BLOOD COUNT (CBC) WITH DIFFERENTIAL Performed by: [facility] [address] [place] [address] TRENT MORENO M.D. [id number] Component Value Range Date MPV 9.6 fL 7.4 - 12.4 05/21/2023 11:2 8 pm EST MONOCYTES 8.4 % 3.0 - 10.0 05/21/2023 11:2 8 pm EST * DIFFERENTIAL # Performed by: [facility] [address] [place] [address] TRENT MORENO M.D. [phone] Component Value Range Date ABSOLUTE NEUTROPHILS 4.2 10E3/uL 1.5 - 8.0 024 11:28 pm EST ABSOLUTE MONOCYTES 0.6 10E3/uL 0.2 - 1.0 4 11:28 pm EST ABSOLUTE EOSINOPHILS 0.2 10E3/uL 0.0 - 0.5 024 11:28 pm EST * CMP (COMPREHENSIVE METABOLIC PANEL) Performed by: [facility] [address] [place] [address] TRENT MORENO M.D. [id number] Component Value Range Date BUN CREAT RATIO 17 Calc 05/21/2023 1 1:28 pm EST A G RATIO 0.98 Calc 0.70 - 6.50 05/21/2023 11:2 8 pm EST GLOBULIN 3.5 g/dL 2.0 - 3.5 05/21/2023 11:2 8 pm EST * Individual Tests: DIFFERENTIAL # / COMPLETE BLOOD COUNT (CBC) WITH DIFFERENTIAL / Serum Creatine + EGFR (Wbnpcex-Wepdblte-Dxgvey) / Serum Creatine + EGFR (Vno-Azlfqhr-Tvknnifz-Female) / CMP (COMPREHENSIVE METABOLIC PANEL) / TSH (THYROID STIMULATING HORMONE) / OTDD... Performed by: [facility] [address] [place] [address] TRENT MORENO M.D. [id number] Component Value Range Date TSH (THYROID STIMULATING HORMONE) 2.34 uIU/mL 0.30 - 6.00 05/21/2023 11:28 pm EST * CMP (COMPREHENSIVE METABOLIC PANEL) Performed by: [facility] [address] [place] [address] DAGELY MORENO M.D. [id number] Component Value Range Date CREATININE 0.64 mg/dL 0.60 - 1.20 05/21/2023 11:2 8 pm EST GLUCOSE 85 mg/dL 70 - 105 05/21/2023 11:2 8 pm EST CALCIUM, SERUM 8.7 mg/dL 8.5 - 10.5 05/21/2023 11 :28 pm EST BILIRUBIN TOTAL 0.7 mg/dL 0.2 - 1.2 05/21/2023 1 1:28 pm EST POTASSIUM 4.3 mEq/L 3.5 - 5.5 05/21/2023 11:2 8 pm EST SODIUM, SERUM 138 mEq/L 135 - 148 05/21/2023 11: 28 pm EST UREA NITROGEN (BUN) 11 mg/dL 7 - 25 05/21/19 24 11:28 pm EST CO2 (CARBON DIOXIDE) 24 mEq/L 21 - 31 024 11:28 pm EST * COMPLETE BLOOD COUNT (CBC) WITH DIFFERENTIAL Performed by: [facility] [address] [place] [address] TRENT MORENO M.D. [id number] Component Value Range Date HEMOGLOBIN 14.2 g/dL 12.0 - 15.5 05/21/2023 11:2 8 pm EST * CMP (COMPREHENSIVE METABOLIC PANEL) Performed by: [facility] [address] [place] [address] TRENT MORENO M.D. [id number] Component Value Range Date CHLORIDE, SERUM 103 mEq/L 95 - 110 05/21/2023 1 1:28 pm EST * COMPLETE BLOOD COUNT (CBC) WITH DIFFERENTIAL Performed by: [facility] [address] [place] [address] daGELY MORENO M.D. [id number] Component Value Range Date MCHC 33.3 g/dL 31.0 - 37.0 05/21/2023 11:2 8 pm EST RBC 4.61 10E6/uL 3.80 - 5.20 05/21/2023 11:2 8 pm EST HEMATOCRIT 42.6 % 36.0 - 46.5 05/21/2023 11:2 8 pm EST MCH 30.7 pg 26.0 - 34.0 05/21/2023 11:2 8 pm EST WBC 7.1 10E3/uL 3.5 - 11.0 05/21/2023 11:2 8 pm EST * CMP (COMPREHENSIVE METABOLIC PANEL) Performed by: [facility] [address] [place] [address] daGELY MORENO M.D. [id number] Component Value Range Date ALANINE AMINOTRANSFERASE (ALT,SGPT) 8 U/L 7 - 5 2 05/21/2023 11:28 pm EST * COMPLETE BLOOD COUNT (CBC) WITH DIFFERENTIAL Performed by: [facility] [address] [place] [address] TRENT MORENO M.D. [id number] Component Value Range Date MCV 92.3 fL 80.0 - 100.0 05/21/2023 11:2 8 pm EST PLATELET COUNT 220 10E3/uL 150 - 399 05/21/2023 11 :28 pm EST * CMP (COMPREHENSIVE METABOLIC PANEL) Performed by: [facility] [address] [place] [address] TRENT MORENO M.D. [id number] Component Value Range Date ASPARTATE AMINOTRANSFERASE (AST,SGOT) 13 U/L 13 - 39 05/21/2023 11:28 pm EST ALBUMIN, SERUM 3.4 g/dL 3.5 - 5.7 05/21/2023 11 :28 pm EST PROTEIN, TOTAL SERUM 6.9 g/dL 5.9 - 8.4 11:28 pm EST ALKALINE PHOSPHATASE, TOTAL 69 U/L 34 - 104 05/21/2023 11:28 pm EST * COMPLETE BLOOD COUNT (CBC) WITH DIFFERENTIAL Performed by: [facility] [address] [place] [address] TRENT MORENO M.D. [id number] Component Value Range Date RDW 13.7 % 10.0 - 15.0 05/21/2023 11:2 8 pm EST NEUTROPHILS 59.8 % 46.0 - 78.0 05/21/2023 11:2 8 pm EST * DIFFERENTIAL # Performed by: [facility] [address] [place] [address] TRENT MORENO M.D. [id number] Component Value Range Date ABSOLUTE BASOPHILS 0.1 10E3/uL 0.0 - 0.2 11:28 pm EST ABSOLUTE LYMPHOCYTES 2.0 10E3/uL 1.0 - 3.9 024 11:28 pm EST * COMPLETE BLOOD COUNT (CBC) WITH DIFFERENTIAL Performed by: [facility] [address] [place] [address] TRENT MORENO M.D. [id number] Component Value Range Date LYMPHOCYTES 27.5 % 18.0 - 52.0 05/21/2023 11:2 8 pm EST EOSINOPHILS 3.4 % 0.0 - 6.0 05/21/2023 11:2 8 pm EST BASOPHILS 0.9 % 0.0 - 3.0 05/21/2023 11:2 8 pm EST * Individual Tests: DIFFERENTIAL # / COMPLETE BLOOD COUNT (CBC) WITH DIFFERENTIAL / Serum Creatine + EGFR (Dzttcws-Ahdeujnp-Lferks) / Serum Creatine + EGFR (Yux-Jfebtap-Yntfvuqe-Female) / CMP (COMPREHENSIVE METABOLIC PANEL) / TSH (THYROID STIMULATING HORMONE) / TODD... Performed by: [facility] [address] [place] [address] TRENT MORENO M.D. [id number] Component Value Range Date VITAMIN B12 598 pg/mL 180 - 914 05/21/2023 11:2 8 pm EST * Individual Tests: COVID-19, RT PCR Performed by: [facility] [address] [place] [address] TRENT MORENO M.D. [id number] Component Value Range Date SARS-COV-2, RT PCR POSITIVE NEGATIVE 3 06:14 pm EST * Individual Tests: COVID-19, RT PCR Performed by: [facility] [address] [place] [address] TRENT MORENO M.D. [id number] Component Value Range Date SARS-COV-2, RT PCR NEGATIVE NEGATIVE 3 03:28 pm EST * Individual Tests: COVID-19, RT PCR Performed by: [facility] [address] [place] [address] TRENT MORENO M.D. [id number] Component Value Range Date SARS-COV-2, RT PCR NEGATIVE NEGATIVE 3 08:16 pm EST * Individual Tests: COVID-19, RT PCR Performed by: [facility] [address] [place] [address] TRENT MORENO M.D. [id number] Component Value Range Date SARS-COV-2, RT PCR NEGATIVE NEGATIVE 3 10:05 pm EST * Individual Tests: COVID-19, RT PCR Performed by: [facility] [address] [place] [address] TRENT MORENO M.D. [id number] Component Value Range Date SARS-COV-2, RT PCR NEGATIVE NEGATIVE 3 03:13 pm EST * Individual Tests: COVID-19, RT PCR Performed by: [facility] [address] [place] [address] TRENT MORENO M.D. [id number] Component Value Range Date SARS-COV-2, RT PCR NEGATIVE NEGATIVE 3 02:51 pm EST * Individual Tests: COVID-19, RT PCR Performed by: [facility] [address] [place] [address] TRENT MORENO M.D. [id number] Component Value Range Date SARS-COV-2, RT PCR NEGATIVE NEGATIVE 3 06:18 pm EST * Individual Tests: COVID-19, RT PCR Performed by: [facility] [address] [place] [address] TRENT MORENO M.D. [id number] Component Value Range Date SARS-COV-2, RT PCR NEGATIVE NEGATIVE 3 06:55 pm EST * Individual Tests: COVID-19, RT PCR Performed by: [facility] [address] [place] [address] TRENT MORENO M.D. [id number] Component Value Range Date SARS-COV-2, RT PCR NEGATIVE NEGATIVE 3 06:41 pm EST * Individual Tests: COVID-19, RT PCR Performed by: [facility] [address] [place] [address] TRENT MORENO M.D. [id number] Component Value Range Date SARS-COV-2, RT PCR NEGATIVE NEGATIVE 3 08:23 pm EST * Individual Tests: COVID-19, RT PCR Performed by: [facility] [address] [place] [address] TRENT MORENO M.D. [id number] Component Value Range Date SARS-COV-2, RT PCR NEGATIVE NEGATIVE 3 03:26 pm EDT * Individual Tests: COVID-19, RT PCR Performed by: [facility] [address] [place] [address] TRENT MORENO M.D. [id number] Component Value Range Date SARS-COV-2, RT PCR NEGATIVE NEGATIVE 3 04:43 pm EDT * Individual Tests: COVID-19, RT PCR Performed by: [facility] [address] [place] [address] TRENT MORENO M.D. [id number] Component Value Range Date SARS-COV-2, RT PCR NEGATIVE NEGATIVE 3 03:29 pm EDT * Individual Tests: COVID-19, RT PCR Performed by: [facility] [address] [place] [address] TRENT MORENO M.D. [id number] Component Value Range Date SARS-COV-2, RT PCR NEGATIVE NEGATIVE 3 05:56 pm EDT * Individual Tests: COVID-19, RT PCR Performed by: [facility] [address] [place] [address] TRENT MORENO M.D. [id number] Component Value Range Date SARS-COV-2, RT PCR NEGATIVE NEGATIVE 3 05:30 pm EDT * Individual Tests: COVID-19, RT PCR Performed by: [facility] [address] [place] [address] TRENT MORENO M.D. [id number] Component Value Range Date SARS-COV-2, RT PCR NEGATIVE NEGATIVE 3 05:46 pm EDT * Individual Tests: COVID-19, RT PCR Performed by: [facility] [address] [place] [address] TRENT MORENO M.D. [id number] Component Value Range Date SARS-COV-2, RT PCR NEGATIVE NEGATIVE 3 02:49 pm EDT * Individual Tests: COVID-19, RT PCR Performed by: [facility] [address] [place] [address] TRENT MORENO M.D. [id number] Component Value Range Date SARS-COV-2, RT PCR NEGATIVE NEGATIVE 3 06:02 pm EDT * Individual Tests: COVID-19, RT PCR Performed by: [facility] [address] [place] [address] TRENT MORENO M.D. [id number] Component Value Range Date SARS-COV-2, RT PCR NEGATIVE NEGATIVE 3 07:08 pm EDT * Individual Tests: COVID-19, RT PCR Performed by: [facility] [address] [place] [address] TRENT MORENO M.D. [id number] Component Value Range Date SARS-COV-2, RT PCR NEGATIVE NEGATIVE 3 08:46 pm EDT * Individual Tests: COVID-19, RT PCR Performed by: [facility] [address] [place] [address] TRENT MORENO M.D. [id number] Component Value Range Date SARS-COV-2, RT PCR NEGATIVE NEGATIVE 3 03:36 pm EDT * Individual Tests: COVID-19, RT PCR Performed by: [facility] [address] [place] [address] TRENT MORENO M.D. [id number] Component Value Range Date SARS-COV-2, RT PCR NEGATIVE NEGATIVE 3 02:03 pm EDT * Individual Tests: COVID-19, RT PCR Performed by: [facility] [address] [place] [address] TRENT MORENO M.D. [id number] Component Value Range Date SARS-COV-2, RT PCR NEGATIVE NEGATIVE 3 07:16 pm EDT * Individual Tests: COVID-19, RT PCR Performed by: [facility] [address] [place] [address] TRENT MORENO M.D. [id number] Component Value Range Date SARS-COV-2, RT PCR NEGATIVE NEGATIVE 3 06:49 pm EDT * Individual Tests: COVID-19, RT PCR Performed by: [facility] [address] [place] [address] TRENT MORENO M.D. [id number] Component Value Range Date SARS-COV-2, RT PCR NEGATIVE NEGATIVE 3 08:18 pm EDT * Individual Tests: COVID-19, RT PCR Performed by: [facility] [address] [place] [address] TRENT MORENO M.D. [id number] Component Value Range Date SARS-COV-2, RT PCR NEGATIVE NEGATIVE 3 04:46 pm EDT * Individual Tests: CMP-COMPREHENSIVE METABOLIC PNL / GLYCO-HGBA1C / CBC W/DIFF / FOLATE (FOLIC ACID)/ VITAMIN B12 / T3, TOTAL / TSH 3-UL / VITAMIN D 25-OH TOTAL Performed by: [facility] [place] [address] [place] [address], [address] [address] Component Value Range Date VITAMIN D 25-OH TOTAL 20 ng/mL 30-100 2022 03:14 pm EDT * GLYCO-HGBA1C Performed by: [address], [place] [id number] Component Value Range Date eAG (Mean Glucose) 105 mg/dL <136 03:14 pm EDT * Individual Tests: CMP-COMPREHENSIVE METABOLIC PNL / GLYCO-HGBA1C / CBC W/DIFF / FOLATE (FOLIC ACID)/ VITAMIN B12 / T3, TOTAL / TSH 3-UL / VITAMIN D 25-OH TOTAL Performed by: [address], [place] [address] Component Value Range Date FOLATE (FOLIC ACID) 3.9 ng/mL >5.4 01/25/20 03:14 pm EDT T3, TOTAL 0.98 ng/mL 0.8-1.9 01/24/2023 03:1 4 pm EDT VITAMIN B12 493 pg/mL 211-911 01/24/2023 03:1 4 pm EDT * CMP-COMPREHENSIVE METABOLIC PNL Performed by: [address], [place] [id number] Component Value Range Date BILIRUBIN, TOTAL 0.6 mg/dL 0.2-1.2 01/24/2023 03:14 pm EDT GLUCOSE 80 mg/dL 01/24/2023 03:1 4 pm EDT * CBC W/DIFF Performed by: [address], [place] [id number] Component Value Range Date NUCLEATED RBC 0.1 NRBC/100 WBC <1.0 01/24/2023 03:14 pm EDT * CMP-COMPREHENSIVE METABOLIC PNL Performed by: [address], [place] [id number] Component Value Range Date CALCIUM 9.1 mg/dL 8.6-10.3 01/24/2023 03:1 4 pm EDT CREATININE 0.7 mg/dL 0.6-1.2 01/24/2023 03:1 4 pm EDT * CBC W/DIFF Performed by: [address], [place] [address] Component Value Range Date MPV 8.4 fL 6.5-12.0 01/24/2023 03:1 4 pm EDT * Individual Tests: CMP-COMPREHENSIVE METABOLIC PNL / GLYCO-HGBA1C / CBC W/DIFF / FOLATE (FOLIC ACID)/ VITAMIN B12 / T3, TOTAL / TSH 3-UL / VITAMIN D 25-OH TOTAL Performed by: [address], [place] [address] Component Value Range Date TSH 3-UL 3.203 uIU/mL 0.340-5.500 01/24/2023 03:1 4 pm EDT * CMP-COMPREHENSIVE METABOLIC PNL Performed by: [address], [place] [address] Component Value Range Date A/G RATIO 1.0 0.8-2.0 01/24/2023 03:1 4 pm EDT * CBC W/DIFF Performed by: [address], [place] [address] Component Value Range Date MONOCYTES (ABSOLUTE) 0.60 K/uL 0.15-1.10 023 03:14 pm EDT * GLYCO-HGBA1C Performed by: [address], [place] [address] Component Value Range Date GLYCOHEMOGLOBIN-HGBA1C 5.3 % 4.1-6.1 01/24 03:14 pm EDT * CMP-COMPREHENSIVE METABOLIC PNL Performed by: [address], [place] [address] Component Value Range Date BUN/CREATININE RATIO 17 6-25 023 03:14 pm EDT * CBC W/DIFF Performed by: [address], [place] [address] Component Value Range Date EOS (ABSOLUTE) 0.20 K/uL 0.20-0.80 01/24/2023 03 :14 pm EDT LYMPHS (ABSOLUTE) 2.30 K/uL 0.90-5.50 01/24/2023 03:14 pm EDT NEUTS (ABSOLUTE) 3.40 K/uL 1.50-7.60 01/24/2023 03:14 pm EDT BASO 1.1 % 0.0-2.0 01/24/2023 03:1 4 pm EDT EOS 2.8 % 0.0-8.0 01/24/2023 03:1 4 pm EDT MONOCYTES 9.5 % 2.0-12.0 01/24/2023 03:1 4 pm EDT LYMPHS 35.0 % 13.0-48.0 01/24/2023 03:1 4 pm EDT MCV 91.1 fL 80.0-100.0 01/24/2023 03:1 4 pm EDT * CMP-COMPREHENSIVE METABOLIC PNL Performed by: [address], [place] [address] Component Value Range Date GFR- 97 mL/min/1.73 m2 >60 03:14 pm EDT * CBC W/DIFF Performed by: [address], [place] [address] Component Value Range Date BASO (ABSOLUTE) 0.10 K/uL 0.00-0.30 01/24/2023 0 3:14 pm EDT * CMP-COMPREHENSIVE METABOLIC PNL Performed by: [address], [place] [address] Component Value Range Date GRZ-YYF-TZRATZH 80 mL/min/1.73 m2 >60 01/24/2023 03:14 pm EDT * CBC W/DIFF Performed by: [address], [place] [id number] Component Value Range Date RDW 14.1 % 11.0-16.0 01/24/2023 03:1 4 pm EDT PLATELET 259 K/cmm 150-450 01/24/2023 03:1 4 pm EDT * CMP-COMPREHENSIVE METABOLIC PNL Performed by: [address], [place] [address] Component Value Range Date ALBUMIN 3.4 g/dL 3.5-5.5 01/24/2023 03:1 4 pm EDT ALKALINE PHOS 65 IU/L 34-136 01/24/2023 03: 14 pm EDT * CBC W/DIFF Performed by: [address], [place] [id number] Component Value Range Date NEUTROPHILS 51.6 % 40.0-80.0 01/24/2023 03:1 4 pm EDT * CMP-COMPREHENSIVE METABOLIC PNL Performed by: [address], [place] [address] Component Value Range Date PROTEIN, TOTAL 6.8 g/dL 6.0-8.3 01/24/2023 03 :14 pm EDT AST (SGOT) 15 IU/L 4-40 01/24/2023 03:1 4 pm EDT * CBC W/DIFF Performed by: [address], [place] [address] Component Value Range Date WBC 6.7 K/cmm 4.5-10.8 01/24/2023 03:1 4 pm EDT * CMP-COMPREHENSIVE METABOLIC PNL Performed by: [address], [place] [address] Component Value Range Date ALT (SGPT) 10 IU/L 4-55 01/24/2023 03:1 4 pm EDT * CBC W/DIFF Performed by: [address], [place] [address] Component Value Range Date MCH 30.1 pg 26.0-35.0 01/24/2023 03:1 4 pm EDT HEMATOCRIT 41.8 % 36.0-48.0 01/24/2023 03:1 4 pm EDT RBC 4.59 M/cmm 3.90-5.40 01/24/2023 03:1 4 pm EDT MCHC 33.0 g/dL 31.0-36.5 01/24/2023 03:1 4 pm EDT * CMP-COMPREHENSIVE METABOLIC PNL Performed by: [address], [place] [id number] Component Value Range Date CHLORIDE 104 mEq/L 98-110 01/24/2023 03:1 4 pm EDT * CBC W/DIFF Performed by: [address], [address] [address] Component Value Range Date HEMOGLOBIN 13.8 g/dL 12.0-16.0 01/24/2023 03:1 4 pm EDT * CMP-COMPREHENSIVE METABOLIC PNL Performed by: [address], [place] [id number] Component Value Range Date SODIUM 143 mEq/L 136-145 01/24/2023 03:1 4 pm EDT CARBON DIOXIDE (CO2) 31 mEq/L 21-33 023 03:14 pm EDT BUN (UREA NITROGEN) 12 mg/dL 7-25 01/25/20 23 03:14 pm EDT POTASSIUM 4.1 mEq/L 3.5-5.3 01/24/2023 03:1 4 pm EDT * Individual Tests: COVID-19, RT PCR Performed by: [facility] [address] [place] [address] TRENT MORENO M.D. [id number] Component Value Range Date SARS-COV-2, RT PCR NEGATIVE NEGATIVE 3 02:08 pm EDT * Individual Tests: COVID-19, RT PCR Performed by: [facility] [address] [place] [address] DAGELY MORENO M.D. [id number] Component Value Range Date SARS-COV-2, RT PCR NEGATIVE NEGATIVE 3 07:37 pm EDT * CMP-COMPREHENSIVE METABOLIC PNL Performed by: [address], [address] [id number] Component Value Range Date POTASSIUM 5.1 mEq/L 3.5-5.3 04/06/2022 03:1 1 pm EST SODIUM 143 mEq/L 136-145 04/06/2022 03:1 1 pm EST BUN (UREA NITROGEN) 18 mg/dL 7-25 04/06/20 22 03:11 pm EST * CBC W/DIFF Performed by: [address], [place] [id number] Component Value Range Date HEMOGLOBIN 13.7 g/dL 12.0-16.0 04/06/2022 03:1 1 pm EST * CMP-COMPREHENSIVE METABOLIC PNL Performed by: [address], [address] [id number] Component Value Range Date CARBON DIOXIDE (CO2) 27 mEq/L 21-33 022 03:11 pm EST CHLORIDE 108 mEq/L 98-110 04/06/2022 03:1 1 pm EST * CBC W/DIFF Performed by: [address], [place] [id number] Component Value Range Date RBC 4.44 M/cmm 3.90-5.40 04/06/2022 03:1 1 pm EST MCHC 33.8 g/dL 31.0-36.5 04/06/2022 03:1 1 pm EST MCH 30.8 pg 26.0-35.0 04/06/2022 03:1 1 pm EST HEMATOCRIT 40.5 % 36.0-48.0 04/06/2022 03:1 1 pm EST WBC 7.1 K/cmm 4.5-10.8 04/06/2022 03:1 1 pm EST * CMP-COMPREHENSIVE METABOLIC PNL Performed by: [address], [place] [id number] Component Value Range Date ALT (SGPT) 10 IU/L 4-55 04/06/2022 03:1 1 pm EST * CBC W/DIFF Performed by: [address], [place] [id number] Component Value Range Date PLATELET 230 K/cmm 150-450 04/06/2022 03:1 1 pm EST * CMP-COMPREHENSIVE METABOLIC PNL Performed by: [address], [place] [id number] Component Value Range Date AST (SGOT) 11 IU/L 4-40 04/06/2022 03:1 1 pm EST ALBUMIN 3.5 g/dL 3.5-5.5 04/06/2022 03:1 1 pm EST PROTEIN, TOTAL 6.3 g/dL 6.0-8.3 04/06/2022 03 :11 pm EST ALKALINE PHOS 60 IU/L 34-136 04/06/2022 03: 11 pm EST * CBC W/DIFF Performed by: [address], [place] [id number] Component Value Range Date RDW 13.5 % 11.0-16.0 04/06/2022 03:1 1 pm EST NEUTROPHILS 50.8 % 40.0-80.0 04/06/2022 03:1 1 pm EST BASO (ABSOLUTE) 0.10 K/uL 0.00-0.30 04/06/2022 0 3:11 pm EST * CMP-COMPREHENSIVE METABOLIC PNL Performed by: [address], [place] [id number] Component Value Range Date TCP-GBW-VZYDQNI 69 mL/min/1.73 m2 >60 04/06/2022 03:11 pm EST GFR- 83 mL/min/1.73 m2 >60 03:11 pm EST * CBC W/DIFF Performed by: [address], [place] [id number] Component Value Range Date MCV 91.2 fL 80.0-100.0 04/06/2022 03:1 1 pm EST LYMPHS (ABSOLUTE) 2.50 K/uL 0.90-5.50 04/06/2022 03:11 pm EST MONOCYTES 10.6 % 2.0-12.0 04/06/2022 03:1 1 pm EST LYMPHS 34.9 % 13.0-48.0 04/06/2022 03:1 1 pm EST BASO 0.8 % 0.0-2.0 04/06/2022 03:1 1 pm EST EOS 2.9 % 0.0-8.0 04/06/2022 03:1 1 pm EST NEUTS (ABSOLUTE) 3.60 K/uL 1.50-7.60 04/06/2022 03:11 pm EST EOS (ABSOLUTE) 0.20 K/uL 0.20-0.80 04/06/2022 03 :11 pm EST MONOCYTES (ABSOLUTE) 0.70 K/uL 0.15-1.10 022 03:11 pm EST * CMP-COMPREHENSIVE METABOLIC PNL Performed by: [address], [place] [id number] Component Value Range Date BUN/CREATININE RATIO 23 6-25 022 03:11 pm EST A/G RATIO 1.3 0.8-2.0 04/06/2022 03:1 1 pm EST * GLYCO-HGBA1C Performed by: [address], [place] [id number] Component Value Range Date GLYCOHEMOGLOBIN-HGBA1C 5.4 % 4.1-6.1 04/06 03:11 pm EST * Individual Tests: CMP-COMPREHENSIVE METABOLIC PNL / LIPID PROFILE w/Reflex Direct LDL / GLYCO-HGBA1C / CBC W/DIFF / VITAMIN B12 / TSH 3-UL / VITAMIN D 25-OH TOTAL Performed by: [address], [place] [id number] Component Value Range Date TSH 3-UL 2.372 uIU/mL 0.340-5.600 04/06/2022 03:1 1 pm EST * CBC W/DIFF Performed by: [address], [place] [address] Component Value Range Date MPV 9.0 fL 6.5-12.0 04/06/2022 03:1 1 pm EST NUCLEATED RBC 0.1 NRBC/100 WBC <1.0 04/06/2022 03:11 pm EST * CMP-COMPREHENSIVE METABOLIC PNL Performed by: [address], [place] [address] Component Value Range Date CREATININE 0.8 mg/dL 0.6-1.2mg/dL 04/06/2022 03:1 1 pm EST GLUCOSE 87 04/06/2022 03:1 1 pm EST CALCIUM 9.0 mg/dL 8.6-10.3mg/dL 04/06/2022 03: 11 pm EST BILIRUBIN, TOTAL 0.3 mg/dL 0.2-1.2 04/06/2022 03:11 pm EST * LIPID PROFILE w/Reflex Direct LDL Performed by: [address], [place] [address] Component Value Range Date LDLc 68 <100 04/06/2022 03:1 1 pm EST LDLc/HDL RATIO 1.5 <4:1 04/06/2022 03 :11 pm EST CHOLESTEROL 159 mg/dL <200 04/06/2022 03:1 1 pm EST TRIGLYCERIDES 229 mg/dL <150 04/06/2022 03: 11 pm EST HDL 45 mg/dL >50 04/06/2022 03:1 1 pm EST * Individual Tests: CMP-COMPREHENSIVE METABOLIC PNL / LIPID PROFILE w/Reflex Direct LDL / GLYCO-HGBA1C / CBC W/DIFF / VITAMIN B12 / TSH 3-UL / VITAMIN D 25-OH TOTAL Performed by: [address], [address] [address] Component Value Range Date VITAMIN B12 542 pg/mL 211-911 04/06/2022 03:1 1 pm EST * GLYCO-HGBA1C Performed by: [address], [address] [address] Component Value Range Date eAG (Mean Glucose) 108 mg/dL <136 03:11 pm EST * LIPID PROFILE w/Reflex Direct LDL Performed by: [address], [address] [address] Component Value Range Date VLDLc 46 mg/dL 5-40 04/06/2022 03:1 1 pm EST * Individual Tests: CMP-COMPREHENSIVE METABOLIC PNL / LIPID PROFILE w/Reflex Direct LDL / GLYCO-HGBA1C / CBC W/DIFF / VITAMIN B12 / TSH 3-UL / VITAMIN D 25-OH TOTAL Performed by: [address], [address] [address] Component Value Range Date VITAMIN D, 25-OH TOTAL 17 SEE BELOW 04/06 03:11 pm EST Encounters Encounter Performer Performer Role Encounter Diagnoses Location Date Discharge - Discharged / Transferred to [facility], MR/DD facility [facility] 06/06/2015 01:15 pm EST - 11/19/2015 05:40 pm EDT Leave - Discharged to home or self care - Home - Private home/apt. with no home health services [facility] 11/22/2017 03:00 pm EDT - 11/25/2020 02:00 pm EDT Leave - Discharged / Transferred to hospital - [facility] 12/01/2020 03:00 pm EDT - 04/18/2021 06:00 pm EST Leave - Home - Private home/apt. with no home health services [facility] 04/24/2021 03:00 pm EST - 05/10/2021 01:00 pm EST Leave - Discharged / Transferred to hospital - [facility], /DD facility [facility] 05/16/2021 02:00 pm EST - 09/26/2021 04:49 pm EDT Discharge - Discharged to home or self care - [facility] - [facility] 10/04/2021 02:00 pm EDT - 12/27/2023 09:16 pm EDT Reason For Referral Altered Mental Status Immunizations Vaccine Date Influenza Influenza Influenza Influenza 03/11/2020 01:00 am EDT Influenza Pneumovax Dose 1 TB 1 Step Mantoux (PPD) 04/17/2022 01:00 am EST SARS-COV-2 (COVID-19) 06/17/2020 01:00 a m EST SARS-COV-2 (COVID-19) 05/27/2020 01:00 a m EST PCV20 Annual TB Mantoux 02/27/2023 01:00 am EDT Annual TB Mantoux 03/27/2021 01:00 am EST Moderna Spikevax Covid 19 Vaccine Social History
--- OUTSIDE RECORDS SUMMARY | 2024-07-06 12:23 | XMS_ITS ---
Author Organization [facility] [place] Address Unknown Allergies, Adverse Reactions, Alerts Substance Reaction Status Noted Date Resolved Date Sulfa Antibiotics active 06/06/2015 Streptomycin active 06/06/2015 Diphenhydramine active 06/06/2015 Ciprofloxacin active 06/06/2015 Medications Medication Dose Frequency Directions Start Date End Wilmer e B-12 Tablet 1000 ug 24 h Give 1000 mcg b y mouth one time a day related to GASTRO-ESOPHAGEAL REFLUX DISEASE WITHOUT ESOPHAGITIS (K21.9) 10/07/2021 Tylenol Tablet 325 MG 2 {tbl} Give 2 tablet by mouth as needed for pain 2 tablets every 4 hours not exceeding 4000 mg in 24 hrs. 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 - ICD-10-CM) ACTIVE 07/16/2013 UNSPECIFIED CONVULSIONS (R56.9 - ICD-10-CM) ACTIVE 07/16/2013 GASTRO-ESOPHAGEAL REFLUX DIS EASE WITHOUT ESOPHAGITIS (K21.9 - ICD-10-CM) ACTIVE 07/16/2013 POLYOSTEOARTHRITIS, UNSPECIFIED (M15.9 - ICD-10-CM) AC TIVE 06/06/2015 Encounters Encounter Performer Performer Role Encounter Diagnoses Location Date Discharge - Discharged / Transferred to an [facility] [place] - halfway [facility] 4 05:45 pm EST - 4 02:00 pm EDT Discharge - Discharged / [facility], MR/DD facility [facility] 6 01:15 pm EST - 6 05:40 pm EDT Leave - Discharged to home or self care - Home - Private home/apt. with no home health services [facility] 8 03:00 pm EDT - 1 02:00 pm EDT Leave - Discharged / [facility] 1 03:00 pm EDT - 1 06:00 pm EST Leave - Home - Private home/apt. with no home health services [facility] 1 03:00 pm EST - 1 01:00 pm EST Leave - Discharged / Transferred to another hospital - [facility], MR/DD facility [facility] 1 02:00 pm EST - 2 04:49 pm EDT Discharge - Discharged / Transferred to [facility] halfway [facility] 2 02:00 pm EDT - 2 02:01 am EDT Advance Directives Directive Description Verification FULL CODE/ATTEMPT RESUSCITATION/CPR Resuscitatio n Immunizations Vaccine Date Influenza 03/11/2020 01:00 am EDT Influenza Pneumovax Dose 1 Annual TB Mantoux 03/27/2021 01:00 am EST SARS-COV-2 (COVID-19) 06/17/2020 01:00 a m EST SARS-COV-2 (COVID-19) 05/27/2020 01:00 a m EST Social History
--- OUTSIDE RECORDS SUMMARY | 2024-07-06 12:23 | XMS_ITS ---
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 04/22/2014 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) ACTIVE 05/14/2014 GASTRO-ESOPHAGEAL REFLUX DIS EASE WITHOUT ESOPHAGITIS (K21.9 - ICD-10-CM) ACTIVE 04/22/2014 UNSPECIFIED CONVULSIONS (R56.9 - ICD-10-CM) ACTIVE 04/22/2014 Encounters Encounter Performer Performer Role Encounter Diagnoses Location Date Discharge - Discharged / Transferred to another hospital - [facility] - [facility], /[facility] 4 04:59 pm [facility] - 4 12:57 pm EST Discharge - Discharged / Transferred to SNF - custodial [facility] 4 03:27 pm [facility] 6 12:35 pm EST Discharge - Discharged / Transferred to [facility] - Snf Facility [facility] 8 12:30 pm [facility] - 8 03:50 pm EDT Immunizations Vaccine Date Influenza Annual TB Mantoux Chest Xray Social History
--- OUTSIDE RECORDS SUMMARY | 2024-07-06 12:23 | XMS_ITS | Encounter Summary ---
Author Organization [facility] Facility Care Team Providers Care Bale Tie Machine Operator Name Role Phone Glynn Jefferson MD Primary Care Provi castro Jamaal Amaya Unavailable [phone] Ignacio Hernandez MD Unavailable [phone] Pa Mejía DO Unavailable [phone] Encounter Details Date Type Department Care Team (Latest Contact Info) Description 05/26/2017 Orders Only [facility] CLINCONV ProviderDavid MD [address] [place] [address] Social History Tobacco Use Types Packs/Day Years Used Date Smoking Tobacco: Never Assessed Comments Unknown Sex and Gender Information Value Date Recorded Sex Assigned at Not on file Legal Sex Female 4:40 AM BUSPERSON Gender Identity Not on file Sexual Orientation Not on file documented as of this encounter Plan of Treatment Not on file documented as of this encounter Procedures Procedure Name Priority Date/Time Associated Diagnosis Comments SCAN - LABS 05/26/2017 12:00 AM BUSPERSON documented in this encounter Results * SCAN - LABS (05/26/2017 12:00 AM BUSPERSON) Narrative 05/26/2017 12:00 AM BUSPERSON Ordered by an unspecified provider. 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 Patient off antipyretics, afebrile, and asymptomatic. Vidya Ramesh 12/27/2023 12/27/2023 01/03/2024 12:46 PM CDT documented as of this encounter Care Teams Bale Tie Machine Operator Relationship Specialty Start Date End Date Glynn Jefferson MD [address] [place] [address] PCP - General Family Medicine 12/21/19 Ignacio Hernandez MD [address] [facility] [address] PCP - Hospice Attending 12/29/2301/05 Jamaal Amaya PA [address] [facility] [address] [place] [address] Consulting Physician Internal Medicine 12/28/23 Pa Mejía DO [address] [place] [address] MEDICAL ONCOLOGY, [facility] [address] [place] [address] Medical Oncologist/Anvilsmith Hematology and Oncology 01/14/24 documented as of this encounter
--- OUTSIDE RECORDS SUMMARY | 2024-07-06 12:23 | XMS_ITS | Encounter Summary ---
Author Organization [facility] Facility Care Team Providers Care Study Abroad Advisor Name Role Phone Glynn Jefferson MD Primary Care Provi castro Jamaal Amaya Unavailable [phone] Ignacio Hernandez MD Unavailable [phone] Pa Mejía DO Unavailable [phone] Encounter Details Date Type Department Care Team (Latest Contact Info) Description 08/08/2017 Orders Only [facility] CLINCONV ProviderDavid MD [address] [place] [address] Social History Tobacco Use Types Packs/Day Years Used Date Smoking Tobacco: Never Assessed Comments Unknown Sex and Gender Information Value Date Recorded Sex Assigned at Not on file Legal Sex Female 4:40 AM CLINICAL ACCOUNT LIAISON Gender Identity Not on file Sexual Orientation Not on file documented as of this encounter Plan of Treatment Not on file documented as of this encounter Procedures Procedure Name Priority Date/Time Associated Diagnosis Comments SCAN - LABS 08/08/2017 12:00 AM CDT documented in this encounter Results * SCAN - LABS (08/08/2017 12:00 AM CDT) Narrative 08/08/2017 12:00 AM CDT Ordered by an unspecified [...] documented as of this encounter Care Teams Study Abroad Advisor Relationship Specialty Start Date End Date Glynn Jefferson MD [address] [facility] [address] [place] [address] PCP - General Family Medicine 12/21/19 Ignacio Hernandez MD 1 [place] [address] PCP - Hospice Attending 12/29/2301/05 Jamaal Amaya PA [address] [place] [address] Consulting Physician Internal Medicine 12/28/23 Pa Mejía DO [address] [place] [address] MEDICAL ONCOLOGY, [facility] [address] [place] [address] Medical Oncologist/Endodontic Assistant Hematology and Oncology 01/14/24 documented as of this encounter
--- OUTSIDE RECORDS SUMMARY | 2024-07-06 12:23 | XMS_ITS | Encounter Summary ---
Author Organization [facility] Facility Care Team Providers Care Sheet Metal Foreman Name Role Phone Glynn Jefferson MD Primary Care Provi castro Jamaal Amaya Unavailable [phone] Ignacio Hernandez MD Unavailable [phone] Pa Mejía DO Unavailable [phone] Encounter Details Date Type Department Care Team (Latest Contact Info) Description 05/28/2017 Orders Only [facility] CLINCONV ProviderDavid MD [address] [place] [address] Social History Tobacco Use Types Packs/Day Years Used Date Smoking Tobacco: Never Assessed Comments Unknown Sex and Gender Information Value Date Recorded Sex Assigned at Not on file Legal Sex Female 4:40 AM DRYER AND WASHER MECHANIC Gender Identity Not on file Sexual Orientation Not on file documented as of this encounter Plan of Treatment Not on file documented as of this encounter Procedures Procedure Name Priority Date/Time Associated Diagnosis Comments SCAN - LABS 05/28/2017 12:00 AM DRYER AND WASHER MECHANIC documented in this encounter Results * SCAN - LABS (05/28/2017 12:00 AM DRYER AND WASHER MECHANIC) Narrative 05/28/2017 12:00 AM DRYER AND WASHER MECHANIC Ordered by an unspecified provider. 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 Patient off antipyretics, afebrile, and asymptomatic. Vidya Ramesh 12/27/2023 12/27/2023 01/03/2024 12:46 PM CDT documented as of this encounter Care Teams Sheet Metal Foreman Relationship Specialty Start Date End Date Glynn Jefferson MD [address] [place] [address] [address] PCP - General Family Medicine 12/21/19 Ignacio Hernandez MD [address] [facility] [place] [address] PCP - Hospice Attending 12/29/2301/05 Jamaal Amaya PA [address] [facility] [address] [place] [address] Consulting Physician Internal Medicine 12/28/23 Pa Mejía DO [address] [place] [address] MEDICAL ONCOLOGY, [facility] [address] [place] [address] Medical Oncologist/Propellant Assembler Hematology and Oncology 01/14/24 documented as of this encounter
--- OUTSIDE RECORDS SUMMARY | 2024-07-06 12:23 | XMS_ITS ---
Author Organization [facility] [place], [facility] Address Unknown Encounters Encounter Performer Performer Role Encounter Diagnoses Location Date Discharge - [facility] [place], [facility] 4 04:00 pm EDT - 4 02:00 pm EDT Discharge - Discharged / Transferred to another [facility] - [facility] - [facility], MR/DD facility [facility], [facility] 4 09:00 pm EDT - 4 07:20 pm EDT Discharge - [facility], MR/DD facility [facility], [facility] 4 05:10 pm EDT - 4 01:15 pm EDT Discharge - Discharged / Transferred to another [facility] - [facility] - [facility], MR/DD facility [facility], [facility] 4 04:30 pm EST - 4 09:00 pm EST Social History
--- OUTSIDE RECORDS SUMMARY | 2024-07-06 12:23 | XMS_ITS | Encounter Summary ---
Author Organization [facility] Facility Care Team Providers Care Grocery Clerk Name Role Phone Glynn Jefferson MD Primary Care Provi castro Jamaal Amaya Unavailable [phone] Ignacio Hernandez MD Unavailable [phone] Pa Mejía DO Unavailable [phone] Encounter Details Date Type Department Care Team (Latest Contact Info) Description 05/17/2017 Orders Only [facility] CLINCONV ProviderDavid MD [address] [place] [address] Social History Tobacco Use Types Packs/Day Years Used Date Smoking Tobacco: Never Assessed Comments Unknown Sex and Gender Information Value Date Recorded Sex Assigned at Not on file Legal Sex Female 4:40 AM FRANCHISE CONSULTANT Gender Identity Not on file Sexual Orientation Not on file documented as of this encounter Plan of Treatment Not on file documented as of this encounter Procedures Procedure Name Priority Date/Time Associated Diagnosis Comments SCAN - LABS 05/17/2017 12:00 AM FRANCHISE CONSULTANT documented in this encounter Results * SCAN - LABS (05/17/2017 12:00 AM FRANCHISE CONSULTANT) Narrative 05/17/2017 12:00 AM FRANCHISE CONSULTANT Ordered by an unspecified provider. 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 Patient off antipyretics, afebrile, and asymptomatic. Vidya Ramesh 12/27/2023 12/27/2023 01/03/2024 12:46 PM CDT documented as of this encounter Care Teams Grocery Clerk Relationship Specialty Start Date End Date Glynn Jefferson MD [address] [place] [address] PCP - General Family Medicine 12/21/19 Ignacio Hernandez MD [address] [facility] [place] [address] PCP - Hospice Attending 12/29/2301/05 Jamaal Amaya PA [address] [facility] [address] [place] [address] Consulting Physician Internal Medicine 12/28/23 Pa Mejía DO [address] [place] [address] MEDICAL ONCOLOGY, [facility] [address] [place] [address] Medical Oncologist/Rag Cutting Machine Feeder Hematology and Oncology 01/14/24 documented as of this encounter
--- OUTSIDE RECORDS SUMMARY | 2024-07-06 12:23 | XMS_ITS | Encounter Summary ---
Author Organization [facility] Facility Care Team Providers Care Diet Assistant Name Role Phone Glynn Jefferson MD Primary Care Provi castro Jamaal Amaya Unavailable [phone] Ignacio Hernandez MD Unavailable [phone] Pa Mejía DO Unavailable [phone] Encounter Details Date Type Department Care Team (Latest Contact Info) Description 05/21/2017 Orders Only [facility] CLINCONV ProviderDavid MD [address] [place] [address] Social History Tobacco Use Types Packs/Day Years Used Date Smoking Tobacco: Never Assessed Comments Unknown Sex and Gender Information Value Date Recorded Sex Assigned at Not on file Legal Sex Female 4:40 AM TEA PLANTATION WORKER Gender Identity Not on file Sexual Orientation Not on file documented as of this encounter Plan of Treatment Not on file documented as of this encounter Procedures Procedure Name Priority Date/Time Associated Diagnosis Comments SCAN - LABS 05/21/2017 12:00 AM TEA PLANTATION WORKER documented in this encounter Results * SCAN - LABS (05/21/2017 12:00 AM TEA PLANTATION WORKER) Narrative 05/21/2017 12:00 AM TEA PLANTATION WORKER Ordered by an unspecified provider. 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 Patient off antipyretics, afebrile, and asymptomatic. Vidya Ramesh 12/27/2023 12/27/2023 01/03/2024 12:46 PM CDT documented as of this encounter Care Teams Diet Assistant Relationship Specialty Start Date End Date Glynn Jefferson MD [address] [place] [address] PCP - General Family Medicine 12/21/19 Ignacio Hernandez MD [address] [facility] [place] [address] PCP - Hospice Attending 12/29/2301/05 Jamaal Amaya PA [address] [facility] [address] [place] [address] Consulting Physician Internal Medicine 12/28/23 Pa Mejía DO [address] [place] [address] MEDICAL ONCOLOGY, [facility] [address] [place] [address] Medical Oncologist/Media Services Specialist Hematology and Oncology 01/14/24 documented as of this encounter
--- OUTSIDE RECORDS SUMMARY | 2024-07-06 12:23 | XMS_ITS | Encounter Summary ---
Author Organization [facility] Facility Care Team Providers Care Broadcast Maintenance Technician Name Role Phone Glynn Jefferson MD Primary Care Provi castro Jamaal Amaya Unavailable [phone] Ignacio Hernandez MD Unavailable [phone] Pa Mejía DO Unavailable [phone] Encounter Details Date Type Department Care Team (Latest Contact Info) Description 09/20/2017 Orders Only [facility] CLINCONV ProviderDavid MD [address] [place] [address] Social History Tobacco Use Types Packs/Day Years Used Date Smoking Tobacco: Never Assessed Comments Unknown Sex and Gender Information Value Date Recorded Sex Assigned at Not on file Legal Sex Female 4:40 AM CLIPMAN Gender Identity Not on file Sexual Orientation Not on file documented as of this encounter Plan of Treatment Not on file documented as of this encounter Procedures Procedure Name Priority Date/Time Associated Diagnosis Comments SCAN - LABS 09/20/2017 12:00 AM CDT SCAN - LABS 09/20/2017 12:00 AM CDT documented in this encounter Results * SCAN - LABS (09/20/2017 12:00 AM CDT) Narrative 09/20/2017 12:00 AM CDT Ordered by an unspecified provider. Historical Provider Final Res ult * SCAN - LABS (09/20/2017 12:00 AM CDT) Narrative 09/20/2017 12:00 AM CDT Ordered by an unspecified provider. 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 Patient off antipyretics, afebrile, and asymptomatic. Vidya Ramesh 12/27/2023 12/27/2023 01/03/2024 12:46 PM CDT documented as of this encounter Care Teams Broadcast Maintenance Technician Relationship Specialty Start Date End Date Glynn Jefferson MD [address] [facility] [address] [place] [address] PCP - General Family Medicine 12/21/19 Ignacio Hernandez MD [address] [place] [address] PCP - Hospice Attending 12/29/2301/05 Jamaal Amaya PA [address] [facility] [address] [place] [address] Consulting Physician Internal Medicine 12/28/23 Pa Mejía DO [address] [place] [address] MEDICAL ONCOLOGY, [facility] [address] [place] [address] Medical Oncologist/Power Plant Mechanic Hematology and Oncology 01/14/24 documented as of this encounter
== END 2024-07-06 09:36 | disposition home or self-care (01) ==
PROVIDERS: PCP Family Medicine; Visit Provider Internal Medicine Medical Oncology
DX: C50.912 Malignant neoplasm of unspecified site of left female breast (principal); Z17.0 Estrogen receptor positive status [ER+]; R59.0 Localized enlarged lymph nodes; M89.9 Disorder of bone, unspecified; R07.89 Other chest pain; Z79.811 Long term (current) use of aromatase inhibitors
CPT/HCPCS: 71260; 74177; Q9967

== ENCOUNTER 2024-12-31 09:26 | Outpatient (CLI) | payer MEDICAID, SELFPAY ==
--- NOTE | ~2024-12-31 | CT_ITS ---
EXAMINATION: CT chest abdomen pelvis w con DATE: 01/01/2025 12:48 CDT INDICATION: Malignant neoplasm of left breast TECHNIQUE: Computed tomography (CT) of the chest, abdomen, and pelvis was performed with intravenous contrast. The dose-length product was 899.14 mGy-cm. COMPARISON: 07/06/2024 FINDINGS: CHEST CT: Grossly stable size and configuration of the 2.1 cm left subareolar mass. Stable to slight interval decrease in the size of the previously described enlarged left axillary lym ph node. No new enlarged left axillary lymph nodes. No enlarged mediastinal or hilar lymph nodes. Heart is mildly enlarged, unchanged. Thoracic aorta is not aneurysmal. Tiny left-sided pleural effusion. No pneumothorax. No pulmonary mass. There are small round glass [place] scattered throughout both lungs. ABDOMEN/PELVIS CT: Gallstones in the gallbladder. Liver, spleen, adrenal glands, and pancreas unremarkable. Kidneys are grossly unchanged. No enlarged lymph nodes identified in the abdomen or pelvis. Bladder is unremarkab le. Uterus is grossly unchanged. Small amount of fluid in the pelvis. Moderate amount of stool. No edgar wel obstruction. No appendicitis. No colitis. There are widespread scattered lytic lesions in the axial and appendicular skeleton similar to the st udy from 07/06/2024. Osseous structures are similar to the study from 07/06/2024 IMPRESSION: 1. Grossly stable left breast mass. 2. Stable to slight interval decrease in the size of the previously described enlarged left axillary lymph node. No new enlarged left axillary lymph nodes. 3. There are widespread scattered lytic lesions in the axial and appendicular skeleton similar to the study from 07/06/2024. Osseous structures are similar to the study from 07/06/2024 Reviewed, dictated and finalized at location [facility]. IMPRESSION: 1. Grossly stable left breast mass. 2. Stable to slight interval decrease in the size of the previously described e nlarged left axillary lymph node. No new enlarged left axillary lymph nodes. 3. There are widespread scattered lytic lesions in the axial and appendicular s [place] similar to the study from 07/06/2024. Osseous structures are similar to the study from 07/06/2024
[2024-12-31 10:04] LABS: Estimated Glomerular Filt Rate > 60
== END 2024-12-31 09:27 | disposition home or self-care (01) ==
PROVIDERS: PCP Family Medicine; Visit Provider Nurse Practitioner Family
DX: C50.912 Malignant neoplasm of unspecified site of left female breast (principal); Z17.0 Estrogen receptor positive status [ER+]; Z79.811 Long term (current) use of aromatase inhibitors
CPT/HCPCS: 71260; 74177; Q9967